=== PATIENT | male | born 1960 | race Caucasian/White ===

== ENCOUNTER 2020-12-25 09:59 | Outpatient (CLI) | payer OTHER, SELFPAY ==
[2020-12-25 10:48] LABS: Amphetamine Screen Urine Negative (Negative); Barbiturate Screen Urine Negative (Negative); Benzodiazepines Screen Urine Positive (Negative); Cannabinoid Screen Urine Positive (Negative); Cocaine Screen Urine Negative (Negative); Methadone Screen Urine Negative (Negative); Opiate Screen Urine Negative (Negative); Phencyclidine Screen Urine Negative (Negative)
[2020-12-25 11:09] LABS: Prostate Specific Antigen 1.6 ng/mL (< OR = 4.0)
== END 2020-12-25 10:00 | disposition home or self-care (01) ==
PROVIDERS: PCP Internal Medicine; Visit Provider Nurse Practitioner
DX: Z12.5 Encounter for screening for malignant neoplasm of prostate (principal); G47.00 Insomnia, unspecified
CPT/HCPCS: 36415; 80307; 84153; G0103

== ENCOUNTER 2021-03-29 09:25 | Inpatient (IN) | payer OTHER, SELFPAY ==
[2021-03-29] VITALS (16 sets, daily range): BP systolic 90–122; BP diastolic 59–83; PULSE 58–95; RESP 12–19; TEMP 35.9–36.6; O2SAT 97–100; BMI 17.4
--- NOTE | ~2021-03-29 | CT_ITS ---
EXAMINATION: CT cervical spine wo con DATE: 03/29/2021 11:09 INDICATION: Head injury, neck pain TECHNIQUE: Computed tomography (CT) of the cervical spine was performed without intravenous contrast. The dose-length product (DLP) was 158.45 mGy-cm. Automated exposure control and iterative reconstruc tion technique were employed. COMPARISON: None FINDINGS: There is no fracture, dislocation, or subluxation. The vertebral body heights are normal. T here is moderate to severe loss of intervertebral disc space height at C5-6. There is advanced facet osteoarthritis on the left at C2-3. There is moderate uncovertebral joint osteoarthritis at C5-6. IMPRESSION: 1. Moderate cervical spondylosis without acute findings. Reviewed, dictated and finalized at location A.
--- NOTE | ~2021-03-29 | XR_ITS ---
EXAMINATION: XR shoulder LT min 2V INDICATION: Left shoulder pain, initial encounter TECHNIQUE: Four views of the left shoulder are submitted. COMPARISON: None FINDINGS: There is an oblique fracture of the distal clavicle. The distal fracture fragment is crania lly displaced by approximately 5 mm. Alignment at the acromioclavicular joint is normal. There is mod erate glenohumeral joint osteoarthritis. Cranial migration of the humeral head with respect to the gl enoid may reflect chronic rotator cuff tear. Soft tissues are unremarkable. IMPRESSION: 1. Oblique fracture of the distal clavicle. Reviewed, dictated and finalized at location A.
--- NOTE | ~2021-03-29 | CT_ITS ---
EXAMINATION: CT chest abdomen pelvis w con DATE: 03/29/2021 11:11 INDICATION: Left-sided pain after fall TECHNIQUE: Transaxial computed tomographic images of the chest, abdomen, and pelvis were obtained aft er the administration of 100 cc of Omnipaque 350 intravenous contrast. The dose-length product (DLP) was 397.32 mGy-cm. Automated exposure control and iterative reconstruction technique were employed. COMPARISON: None FINDINGS: CHEST CT: There are changes of esophagectomy with gastric pull-through. There is a 4 mm nodule of the right upp er lobe on image 55. There is mild dependent atelectasis. There is a small right pleural effusion. No pathologically enlarged thoracic lymph nodes are identified. The heart size is normal. No pneumothor ax is identified. There is calcified coronary artery atherosclerosis. There is mild thoracic spondylo sis. There is an oblique fracture of the left distal clavicle with 5 mm of radial displacement of the distal fracture fragment. ABDOMEN/PELVIS CT: The liver, pancreas, and adrenal glands are normal. Punctate calcifications in an otherwise normal sp davide likely represent healed granulomatous disease. Stones are present in the nondistended gallbladde r. There is a 1.5 cm cyst of the left kidney. The right kidney is unremarkable. There is a 3.7 cm sac cular aneurysm of the infrarenal abdominal aorta. No pathologically enlarged abdominal or pelvic lymp h nodes are identified. There is no free intraperitoneal gas or evidence of bowel obstruction. There is mild to moderate lumbar spondylosis. IMPRESSION: 1. Left distal clavicle fracture. 2. Changes of esophagectomy with gastric pull-through. 3. Indeterminate 4 mm nodule of the right upper lobe. Comparison with prior imaging is recommended. Reviewed, dictated and finalized at location A. IMPRESSION: 1. Left distal clavicle fracture. 2. Changes of esophagectomy with gastric pull-through. 3. Indeterminate 4 mm nodule of the right upper lobe. Comparison with prior robin ging is recommended.
--- NOTE | ~2021-03-29 | CT_ITS ---
EXAMINATION: CT brain wo con INDICATION: Head injury COMPARISON: None TECHNIQUE: Standard unenhanced head CT. The dose-length product (DLP) was 605.33 mGy-cm. The mA was a djusted according to patient size. Iterative reconstruction technique was employed. FINDINGS: There is no acute intraparenchymal hemorrhage. No evidence of mass lesion. No evidence of a cute infarction. There is mild periventricular and subcortical hypodensity probably related to small vessel ischemic disease. There is mild prominence of the sulci and ventricles related to cerebral atr ophy. Intracranial calcified cerebral atherosclerosis is noted. There are no extra-axial collections. There is no mass effect or midline shift. The orbits and soft tissues are unremarkable. There is mil d mucosal thickening of the paranasal sinuses. IMPRESSION: 1. No acute intracranial abnormality. 2. Age related findings. Reviewed, dictated and finalized at location A.
[2021-03-29 10:12] LABS: Basophils Percent Auto 0.2 % (0.2-1.2); Eosinophils Percent Auto 0.2 % (0-4.4); Hematocrit 28.3 % (42.0-52.0); Hemoglobin 9.6 g/dL (14.0-18.0); Immature Granulocyte Absolute 0.03 K/mm3 (0.00-0.031); Immature Granulocyte Percent A 0.7 % (0-0.5); Lymphocytes Absolute Auto 0.58 K/mm3 (0.9-3.2); Lymphocytes Percent Auto 13.5 % (18.3-44.2); Mean Corpuscular HGB Conc 33.9 g/dl (32-36); Mean Corpuscular Hemoglobin 37.4 pg (26-34); Mean Corpuscular Volume 110.1 fl (80-100); Mean Platelet Volume 9.6 fl (7.4-10.4); Monocytes Absolute Auto 0.5 K/mm3 (0.1-0.6); Monocytes Percent Auto 12.3 % (2.6-8.5); Neutrophils Absolute Auto 3.2 K/mm3 (1.3-6.7); Neutrophils Percent Auto 73.1 % (45.5-73.1); Platelet Count Result 132 k/mm3 (150-375); Red Blood Count 2.57 M/mm3 (4.6-6.20); White Blood Count 4.3 K/mm3 (4.5-10.0)
[2021-03-29] MEDS: SODIUM CHLORIDE 0.9% IV 1,000 ML 999 ML IV CONT ×2 (10:16→11:01)
[2021-03-29 10:28] LABS: INR 0.9; Prothrombin Time 11.7 Seconds (11.1-14.7)
[2021-03-29 10:29] LABS: Partial Thromboplastin Time 25.1 SECONDS (22.3-36.8)
[2021-03-29 10:30] LABS: Alanine Aminotransferase 25 U/L (4-50); Alkaline Phosphatase 111 U/L (38-126); Anion Gap 5 mmol/L (8-16); Aspartate Amino Transferase 39 U/L (17-59); Bilirubin,Total 0.8 mg/dL (0.2-1.3); Blood Urea Nitrogen 44 mg/dL (9-20); Calcium 8.5 mg/dL (8.4-10.2); Carbon Dioxide 28 mmol/L (22-30); Chloride 105 mmol/L (98-107); Estimated CRCL calculation 57 ml/min; Estimated Glomerular Filt Rate > 60; Glucose 136 mg/dL (65-110); Potassium 4.4 mmol/L (3.4-5.0); Sodium 138 mmol/L (137-145)
--- NOTE | 2021-03-29 10:30 | ECG_ITS ---
Measurements Intervals [place] Rate: 71 P: 79 WV: 148 QRS: 78 QRSD: 122 T: 48 QT: 403 QTc: 439 Interpretive Statements SINUS RHYTHM RIGHT BUNDLE BRANCH BLOCK BASELINE ARTIFACT- II, III, AVL, AVF ABNORMAL ECG Electronically Signed On 03-29-2021 11:00:28 CDT by Marlon Zuniga D.O.
--- NOTE | 2021-03-29 10:33 | ED.GENADULT ---
HPI - General Adult General Chief complaint: Fall Stated complaint: fall Time Seen by Provider: 03/29/21 10:07 Source: patient Mode of arrival: EMS Limitations: no limitations History of Present Illness HPI narrative: Patient presents for evaluation after falling twice at home. He states last night he woke from sleep and attempted to get up out of bed to use the restroom. He felt dizzy and fell. He hit his head but is unsure whether he had a loss of consciousness. He is not on blood thinners. He was eventually able to get up and sit in a chair. This morning, while it was still dark out, he attempted to get up again but fell a second time secondary to dizziness. He does not believe he hit his head during that fall. He states he was on the ground for quite some time but was able to eventually scoot to his cell phone and called EMS who brought him here for further evaluation. He currently reports pain in the neck without descriptive quality or numerical rating. He states that he has some pain in the left ribs and left shoulder. He reports decreased range of motion of the left shoulder. He does not provide me a descriptive quality or numerical rating to that pain. He does admit to drinking 4 times per week, usually drinking 1 pint of vodka at a time. Last drink was last night. Nursing staff informed me that when patient arrived here via EMS he had been incontinent of stool. Stool is black in appearance and there was some blood and clots present. Of note, he has a history of esophageal cancer status post surgical removal of a portion of his esophagus and stomach. He states he is currently in remission. Related Data Home Medications Medication Instructions Recorded Confirmed ascorbic acid (vitamin C) 500 mg 500 mg PO DAILY 09/23/20 03/28/21 tablet cholecalciferol (vitamin D3) 25 1,000 unit PO DAILY cap 09/23/20 03/28/21 mcg (1,000 unit) capsule cyanocobalamin (vitamin B-12) 1,000 mcg PO DAILY 09/23/20 03/28/21 1,000 mcg tablet ibuprofen 200 mg capsule 200 mg PO Q6H PRN 09/23/20 03/28/21 multivitamin 1 tablet PO DAILY 09/23/20 03/28/21 rosuvastatin 20 mg tablet 20 mg PO DAILY 09/23/20 03/28/21 esomeprazole magnesium 20 mg 20 mg PO DAILY 04/14/21 08/13/21 capsule,delayed release gabapentin 100 mg capsule 100 mg PO TID 03/28/21 03/28/21 mirtazapine 15 mg tablet 15 mg PO DAILY 03/28/21 03/28/21 Allergies Allergy/AdvReac Type Severity Reaction Status Date / Time No Known Allergies Allergy Verified 03/29/21 09:38 Review of Systems Review of Systems: CONSTITUTIONAL: Denies fever, chills, or sweats. EYES: Denies visual changes, redness, or discharge. ENT: Denies rhinorrhea, congestion, sore throat, or otalgia. CARDIOVASCULAR: Denies chest pain, palpitations, or edema. RESPIRATORY: Denies cough or dyspnea. GASTROINTESTINAL: Reports recent fecal incontinence. Denies abdominal pain, nausea, vomiting, or diarrhea. GENITOURINARY: Denies dysuria or hematuria. SKIN: Reports wounds to upper extremities bilaterally MUSCULOSKELETAL: Reports left shoulder pain, neck pain, left-sided rib pain NEUROLOGIC: Reports dizziness. Denies headache, numbness, or weakness. PSYCHIATRIC: Denies anxiety or depression. [facility] Past Medical History Medical History Anxiety Asthma Cancer Esophageal Chemotherapy-induced neuropathy GERD (gastroesophageal reflux disease) High blood cholesterol Surgical History Surgical History History of esophageal surgery History of facial surgery History of thoracic surgery Hx of tonsillectomy Family History Family History Mother Cancer Hypertension Heart disease Father Heart attack Other Diabetes mellitus Heart disease Social History Social History Smok
[2021-03-29] MEDS: HYDROcodone/acetaminophen (*CRX) 5-325 MG TABLET 1 TAB PO ×2 (11:01→23:30)
[2021-03-29 12:01] LABS: Ethanol < 10 mg/dL (<10)
[2021-03-29 12:14] LABS: Add Urine Microscopic? YES; Appearance Urine Clear (Clear); Bilirubin Urine Negative (Negative); Blood Urine Negative (Negative); Color Urine Yellow (Yellow); Glucose Urine UA Negative (Negative); Ketones Urine Trace mg/dL (Negative); Leukocyte Esterase Ur Negative LEU/UL (Negative); Mucus Urine Rare /lpf; Nitrate Urine Negative (Negative); Protein Urine Negative (Negative); RBC Urine 0-2 /hpf (0-2); Urobilinogen Urine Negative mg/dL (<2.0); WBC Urine 0-3 /hpf
[2021-03-29 12:19] LABS: Creatine Kinase 70 U/L (55-170); Lipase 125 U/L (23-300)
[2021-03-29 12:27] LABS: Specific Grav Ur 1.039 (1.001-1.035)
[2021-03-29 12:31] LABS: Troponin I < 0.012 ng/mL (0.000-0.034)
[2021-03-29 14:44] LABS: Troponin I < 0.012 ng/mL (0.000-0.034)
--- NOTE | 2021-03-29 18:40 | ADMGEN ---
This patient, Thien Auguste, was admitted to 3 Med Surg Room 317-01. Patient/family oriented to hospital policies and general routines including ID bracelet, bed and alarms, visiting hours, pain management, procedures, bathroom and other care routines, personal items, smoking policy, room service/diet, and visiting hours. Information on how to activate the Rapid Response Team has been discussed. Patient/Family are encouraged to report perceived risks to care and to ask questions if they do not understand what they are told or what they should do.
[2021-03-29 20:55] LABS: Hematocrit 20.5 % (42.0-52.0)
--- NOTE | 2021-03-29 21:11 | PM.IMHP ---
H&P: HPI History of Present Illness Date/Time: 03/29/21 21:11 Chief Complaint: Passed out, tardy stools Narrative: 60-year-old male with past medical history of esophageal cancer with esophageal pull-through and vagotomy and alcoholism who presented to the ER via EMS after having syncopal event and fall after which he was unable to get up. The patient reported that last night he felt as if he was going to have a bowel movement tried to rash to the bathroom. He became lightheaded and had to sit back down in the chair at which time he was incontinent of stool. His stool was tarry at that time. He then again tried to get up in get cleaned up and subsequently fell and passed out. He was so weak he could not get up off the floor to call for help. It took him several hours to get to his phone. He reports pain in his shoulder since the fall. Once the patient arrived to the ER he had another bowel movement that was maroon and melenic in nature. He does admit to drinking 1/5 of vodka 3-4 days out of the week. He reports that he has had a long history of alcoholism. He had drank heavily for many years and then stopped for several years. However when his mother back in July he became depressed and started drinking again in August. He denies having any significant symptoms of heartburn. He does take PPI therapy daily. He reports that his quality of life is such that he he is frustrated. He states he is so weak he cannot get up and do what he wants to do. He has severe neuropathy that he thinks is from his chemotherapy regimen but could also be due to his chronic alcoholism. He reports that he has a chronic shuffling gait. Ever since he had his vagotomy he does not have this sensation did tell him that he is hungry. He will often sit home and does not realize it he has not eaten. He does drink protein shakes and low lactose supplements. He reports that prior to his esophageal cancer he weighed 260 lb. His weight had been holding steady at around 120 lb but several months he quit caring for his grand children in moved back to his own home full-time and since that time his weight has dropped down to around 107 lb. He states that his son travels frequently and he was helping raise his grand children. But caring for the grand children became too much for him and he had to return to his own home. He does have frequent difficulty with dumping syndrome. He reports that just prior to his melenic stool he did become nauseated and diaphoretic. He reports that he has been having difficulty with being dizzy with standing or moving about for the last several months. He denies any chest pain or palpitations. He had not had any recent syncopal episodes until today. He denies any difficulty with urination. In the ER he was found have a hemoglobin of 9. He does not know what his most recent hemoglobin was at [place]. He stated that he had labs performed in February and he was told that they were stable. He reports that his mother in 2019. His stepfather 3 weeks ago. He admits to being depressed but denies any suicidal ideation or plans to hurt himself. He is frustrated with his declining functional status. He would like acute rehab placement and alcohol treatment program on discharge. Review of Systems Review of Systems: 12 systems were reviewed with pertinent positives and negatives per HPI. Except as documented in the HPI, all other systems were reviewed and are negative. [facility] Past Medical History Medical History (Updated 03/29/21 @ 23:27 by Shantell Snow DO) Alcohol abuse Anxiety Asthma Chemotherapy-induced neuropathy Esophageal cancer GERD (gastroesophageal reflux disease) High blood cholesterol Surgical History Surgical History (Updated 03/29/21 @ 23:17 by Shantell Snow DO) History of esophagectomy History of facial surgery History of thoracic surgery History of vagotomy Hx of tonsillectomy Family History Family Hist
[2021-03-29] MEDS: PANTOPRAZOLE SODIUM IV 40 MG VIAL IV PUSH (21:24)
[2021-03-29] MEDS: SODIUM CHLORIDE 0.9% IV 1,000 ML 100 ML IV CONT (21:27)
[2021-03-29] MEDS: SODIUM CHLORIDE 0.9% IV 250 ML 30 ML IV CONT (23:05)
[2021-03-30] VITALS (11 sets, daily range): BP systolic 87–107; BP diastolic 54–76; PULSE 55–97; RESP 16–18; TEMP 36.1–37.1; O2SAT 98–100
[2021-03-30] MEDS: THIAMINE HCL 200 MG/2 ML VIAL 100 MG IV PUSH ×2 (02:55→09:42)
[2021-03-30 03:05] LABS: Hematocrit 24.6 % (42.0-52.0); Mean Corpuscular HGB Conc 32.5 g/dl (32-36); Mean Corpuscular Hemoglobin 33.8 pg (26-34); Mean Corpuscular Volume 103.8 fl (80-100); Mean Platelet Volume 9.7 fl (7.4-10.4); Platelet Count Result 82 k/mm3 (150-375); Red Blood Count 2.37 M/mm3 (4.6-6.20); Red Cell Distribution Width 19.5 % (11.5-14.5); White Blood Count 2.8 K/mm3 (4.5-10.0)
[2021-03-30 03:29] LABS: Albumin Level 2.1 g/dL (3.5-5.1); Aspartate Amino Transferase 25 U/L (17-59); Bilirubin,Total 0.7 mg/dL (0.2-1.3); Blood Urea Nitrogen 27 mg/dL (9-20); Carbon Dioxide 27 mmol/L (22-30); Estimated CRCL calculation 65 ml/min; Estimated Glomerular Filt Rate > 60
[2021-03-30 03:45] LABS: Alanine Aminotransferase 15 U/L (4-50); Alkaline Phosphatase 81 U/L (38-126); Anion Gap 2 mmol/L (8-16); Calcium 7.6 mg/dL (8.4-10.2); Chloride 103 mmol/L (98-107); Glucose 78 mg/dL (65-110); Potassium 3.3 mmol/L (3.4-5.0); Sodium 132 mmol/L (137-145)
[2021-03-30 04:31] LABS: Folic Acid 6.3 ng/mL (2.76->20)
[2021-03-30 09:22] LABS: Hematocrit 25.2 % (42.0-52.0); Hemoglobin 8.2 g/dL (14.0-18.0)
[2021-03-30] MEDS: SODIUM CHLORIDE 0.9% IV 1,000 ML 100 ML IV CONT ×2 (09:41→19:41)
[2021-03-30] MEDS: GABAPENTIN 100 MG CAPSULE PO ×3 (09:42→17:16)
[2021-03-30] MEDS: MIRTAZAPINE 15 MG TABLET PO (09:42)
[2021-03-30] MEDS: CHOLECALCIFEROL 1,000 UNITS TABLET 1000 UNITS PO (09:42)
[2021-03-30] MEDS: CYANOCOBALAMIN 1,000 MCG TABLET 1000 MCG PO (09:42)
[2021-03-30] MEDS: MULTIVITAMINS THERAPEUTIC TAB (*BKC) 1 TABLET PO (09:42)
[2021-03-30] MEDS: FOLIC ACID 1 MG/0.2 ML INJ IV PUSH (09:43)
[2021-03-30] MEDS: PANTOPRAZOLE SODIUM IV 40 MG VIAL IV PUSH ×2 (09:43→17:16)
--- NOTE | 2021-03-30 10:59 | WPDGICN ---
Assessment and Plan Assessment and plan (1) Acute blood loss anemia: Code(s): D62 - Acute posthemorrhagic anemia Status: Acute Assessment and Plan: will proceed with egd tomorrow, he is alcoholic and need to look for varices, PUD, etc. Also known history of esophageal cancer- assess if recurrence keep hb>7, iv protonix and supportive care (2) Acute GI bleeding: Code(s): K92.2 - Gastrointestinal hemorrhage, unspecified Status: Acute Assessment and Plan: protonix, egd tomorrow (3) Melena: Code(s): K92.1 - Melena Status: Acute (4) Alcohol abuse: Code(s): F10.10 - Alcohol abuse, uncomplicated Status: Acute Assessment and Plan: ciwa protocol thiamine, mvi alcohol cessation encourage (he would like to go to inpatient rehab) (5) Esophageal cancer: Code(s): C15.9 - Malignant neoplasm of esophagus, unspecified Status: Inactive (6) Closed fracture of left clavicle: Qualifiers: Clavicle location: unspecified part of clavicle Encounter type: initial encounter Fracture alignment: displaced Qualified Code(s): S42.002A - Fracture of unspecified part of left clavicle, initial encounter for closed fracture Code(s): S42.002A - Fracture of unspecified part of left clavicle, initial encounter for closed fracture Status: Acute Assessment and Plan: after he fell- by primary team (7) Syncopal episodes: Code(s): R55 - Syncope and collapse Status: Acute Assessment and Plan: probably due to acute gib and alcohol abuse (8) Chemotherapy-induced neuropathy: Code(s): G62.0 - Drug-induced polyneuropathy; T45.1X5A - Adverse effect of antineoplastic and immunosuppressive drugs, initial encounter Status: Acute GI Consult Note Consult date/time: 03/30/21 10:59 Reason for consult: melena, gib, syncope HPI: Thien Auguste is a 60 year old male with of esophageal cancer with esophageal pull-through and vagotomy 1 year ago s/p chemoradiation therapy, weight loss since surgery, GERD using nexium, alcohol abuse drinking 1 pint of vodka daily since he had his surgery (He had drank heavily for many years and then stopped for several years), he is under a lot of stress and family loss. He came to the ER via EMS after had syncopal episode. He says that [place]ar had first episode of rushing to bathroom and noted dark tarry stool, was lightheaded. Yesterday night after waking up again to use restroom was lightheaded and fell to floor and passed out briefly, had again dark tarry stool with incontinence. Finally was able to get to his phone after some time and brought here. He reports pain in his left shoulder since the fall. Denies blood thinners or nsaid's. Blood work hb 7, plate 80, bun 44, creat 0.8, liver enzymes normal, inr 0.9. CT scan reviewed, left distal clavicle fracture, changes of esophagectomy with gastric pull-through. Admitted to floor, iv protonix, blood transfusion. Review of Systems Constitutional: Constitutional: Reports weakness Eyes: Eyes: Reports no additional eye complaints ENT: Reports Normal hearing present Cardiovascular: Cardiovascular: Denies chest pain Respiratory: Respiratory: Denies dyspnea Gastrointestinal: Gastrointestinal: Reports melena Genitourinary: Genitourinary: Denies dysuria Musculoskeletal: Musculoskeletal: Reports arthralgias (left shoulder) Integumentary/Breasts: Comments: bruises in shoulder and arm Neurologic: Comments: syncopal episode Psychiatric: Psychiatric: Reports anxiety [facility] Past Medical History Medical History (Updated 03/30/21 @ 11:09 by Babak Adams MD) Acute blood loss anemia Alcohol abuse Anxiety Asthma Chemotherapy-induced neuropathy Esophageal cancer GERD (gastroesophageal reflux disease) High blood cholesterol Melena Syncopal episodes Surgical History Surgical History (Updated 03/29/21 @ 23:17 by Shantell Snow DO)
[2021-03-30 12:11] LABS: Hematocrit 25.1 % (42.0-52.0); Hemoglobin 8.1 g/dL (14.0-18.0)
[2021-03-30] MEDS: HYDROcodone/acetaminophen (*CRX) 5-325 MG TABLET 1 TAB PO ×2 (12:31→17:18)
--- NOTE | 2021-03-30 14:43 | PM.IMPN ---
Progress Note: A&P Assessment and Plan (1) Acute blood loss anemia: Code(s): D62 - Acute posthemorrhagic anemia Status: Acute Assessment and Plan: -likely upper GI bleed, hemoglobin down to 7.0, status post 1 unit packed red blood cells, improved to 8.0, appropriate increase in Hgb by 1 point -plan for EGD tomorrow with Dr. Chun -continue IV b.i.d. PPI for now -Zofran for nausea -continue IV fluids normal saline for now (2) Syncopal episodes: Code(s): R55 - Syncope and collapse Status: Acute Assessment and Plan: Likely secondary to anemia, will continue supportive care, IV fluids (3) Melena: Code(s): K92.1 - Melena Status: Acute Assessment and Plan: Likely upper GI bleed (4) Closed fracture of left clavicle: Qualifiers: Clavicle location: unspecified part of clavicle Encounter type: initial encounter Fracture alignment: displaced Qualified Code(s): S42.002A - Fracture of unspecified part of left clavicle, initial encounter for closed fracture Code(s): S42.002A - Fracture of unspecified part of left clavicle, initial encounter for closed fracture Status: Acute Assessment and Plan: Left upper extremity in sling, no surgical indication at this time -pain control with morphine and Coxsackie (5) Skin tear: Status: Acute Assessment and Plan: Will monitor, skin tears from fall (6) Underweight due to inadequate caloric intake: Code(s): R63.6 - Underweight Status: Acute Assessment and Plan: -Patient will need mealtime ensures and supplement, patient needs EGD for upper GI bleed 1st -mirtazapine for appetite stimulant (7) Chemotherapy-induced neuropathy: Code(s): G62.0 - Drug-induced polyneuropathy; T45.1X5A - Adverse effect of antineoplastic and immunosuppressive drugs, initial encounter Status: Acute Assessment and Plan: Continue home gabapentin (8) Alcohol abuse: Code(s): F10.10 - Alcohol abuse, uncomplicated Status: Acute Assessment and Plan: -continue thiamine and multivitamin and folic acid -p.r.n. Xanax for alcohol withdrawal, however [facility] has been zero -case hardener to provide resources for alcohol abuse Additional Plan Diet: Clear liquid diet NPO at midnight for EGD tomorrow DVT prophylaxis: SCDs, likely acute GI bleed so no blood thinners GI prophylaxis: Protonix Code status: Full code Disposition: Pending clinical course, EGD tomorrow Time Spent With Patient Time with patient: 25 - 35 minutes Subjective Date/time seen: 03/30/21 14:43 Patient examined. He feels okay today with no new complaints. He denies fever, chills, nausea, vomiting diarrhea, diarrhea. CIWAs have been zero as per nurse. He understands his alcoholism may be causing problems with GI symptoms and would like to have rehab therapy. support coordinator to provide alcohol cessation resources today. There is concern for GI bleed and evaluator transfer students will perform EGD tomorrow. Review of Systems Review of Systems: All systems reviewed & are unremarkable except as noted in HPI and below Exam Narrative: - GENERAL: Cachectic, frail male in no acute distress sitting comfortably in bed., - EYES: EOMI. Anicteric. - HENT: Moist mucous membranes. Bruise left-side of head - LUNGS: Clear to auscultation bilaterally, no wheezing, rhonchi, or rales. - CARDIOVASCULAR: Regular rate and rhythm. No murmur. - ABDOMEN: Soft, non-tender and non-distended. No palpable masses. - EXTREMITIES: No edema. Peripheral pulses 2+. Non-tender. Left upper extremity in sling, left clavicular fracture. - NEUROLOGIC: No focal neurological deficits. CN II-XII grossly intact. No shaking or signs of withdrawal, CIWA 0. - PSYCHIATRIC: Awake, Alert and oriented x 3. Appropriate mood and affect. - SKIN: Multiple bruises throughout his upper extremities, left shoulder, and has head - LYMPH: No cervical lymphadenopathy. Ob
[2021-03-30] MEDS: POTASSIUM CHLORIDE 20 MEQ PACKET (FOR LIQUID) 40 MEQ PO (17:15)
[2021-03-30 18:32] LABS: Hematocrit 22.3 % (42.0-52.0); Hemoglobin 7.4 g/dL (14.0-18.0)
[2021-03-31] VITALS (9 sets, daily range): BP systolic 95–112; BP diastolic 61–75; PULSE 50–556; RESP 16–24; TEMP 36–36.7; O2SAT 98–100; BMI 17.4
[2021-03-31] MEDS: SODIUM CHLORIDE 0.9% IV 1,000 ML 100 ML IV CONT (06:01)
--- NOTE | 2021-03-31 07:14 | PM.IMPN ---
Progress Note: A&P Assessment and Plan (1) Acute blood loss anemia: Code(s): D62 - Acute posthemorrhagic anemia Status: Acute Assessment and Plan: -likely upper GI bleed, hemoglobin down to 7.0, status post 1 unit packed red blood cells -plan for EGD today with Dr. Chun -continue IV b.i.d. PPI for now -Zofran for nausea -continue IV fluids normal saline for now. He will be started on diet again based on EGD findings. Continue to monitor H&H. Hemoglobin was 8.2 today which is up from 7.4 yesterday. PRBC transfusion is not indicated at this time. He has history of esophageal cancer with esophagectomy. He has received radiation and chemotherapy about a year ago. He has been getting his care through [facility] [place] [facility]. He was last seen by his oncologist about a month ago. (2) Syncopal episodes: Code(s): R55 - Syncope and collapse Status: Acute Assessment and Plan: Likely secondary to anemia, will continue supportive care, IV fluids (3) Melena: Code(s): K92.1 - Melena Status: Acute Assessment and Plan: Likely upper GI bleed (4) Closed fracture of left clavicle: Qualifiers: Clavicle location: unspecified part of clavicle Encounter type: initial encounter Fracture alignment: displaced Qualified Code(s): S42.002A - Fracture of unspecified part of left clavicle, initial encounter for closed fracture Code(s): S42.002A - Fracture of unspecified part of left clavicle, initial encounter for closed fracture Status: Acute Assessment and Plan: Left upper extremity in sling, no surgical indication at this time -pain control with morphine and [place]. Deescalate opiates if pain is adequately controlled. 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 Xanax for alcohol withdrawal, however GERMAN has been zero -manager of case management to provide resources for alcohol abuse Additional Plan Diet: Will resume clear liquid diet after endoscopy today based on findings. DVT prophylaxis: SCDs, likely acute GI bleed so no blood thinners GI prophylaxis: Protonix is b.i.d. dosing Magnesium was low which was repleted today. PT OT will be consulted for Code status: Full code Disposition: Pending clinical course, EGD today. Likely discharge in a.m. if remained stable. Subjective Date/time seen: 03/31/21 07:14 He denied have any significant symptoms. He denied have any chest pain or shortness of breath. He denied have any bowel movement in last 24 hour. He denied have any nausea vomiting or abdominal pain. He is feeling tired and being unwell. Review of Systems Review of Systems: All systems reviewed & are unremarkable except as noted in HPI and below Exam Narrative: - GENERAL: Cachectic, frail male in no acute distress sitting comfortably in bed., - LUNGS: Clear to auscultation bilaterally, no wheezing, rhonchi, or rales. - CARDIOVASCULAR: Regular rate and rhythm - ABDOMEN: Soft, non-tender and non-distended. - EXTREMITIES: No edema. - NEUROLOGIC: Alert oriented times - PSYCHIATRIC: Awake, Alert and oriented x 3. Appropriate mood and affect. - SKIN: Multiple bruises throughout his upper extremities, left shoulder, and has head Obj
[2021-03-31 07:43] LABS: Hematocrit 24.5 % (42.0-52.0); Hemoglobin 8.2 g/dL (14.0-18.0); Mean Corpuscular HGB Conc 33.5 g/dl (32-36); Mean Corpuscular Hemoglobin 35.3 pg (26-34); Mean Corpuscular Volume 105.6 fl (80-100); Mean Platelet Volume 10.1 fl (7.4-10.4); Platelet Count Result 95 k/mm3 (150-375); Red Blood Count 2.32 M/mm3 (4.6-6.20); Red Cell Distribution Width 20.5 % (11.5-14.5); White Blood Count 2.7 K/mm3 (4.5-10.0)
[2021-03-31 08:32] LABS: Anion Gap -1 mmol/L (8-16); Blood Urea Nitrogen 13 mg/dL (9-20); Calcium 7.7 mg/dL (8.4-10.2); Carbon Dioxide 23 mmol/L (22-30); Chloride 112 mmol/L (98-107); Estimated CRCL calculation 65 ml/min; Estimated Glomerular Filt Rate > 60; Glucose 92 mg/dL (65-110); Magnesium 1.4 mg/dL (1.6-2.3); Potassium 3.4 mmol/L (3.4-5.0); Sodium 134 mmol/L (137-145)
[2021-03-31] MEDS: THIAMINE HCL 200 MG/2 ML VIAL 100 MG IV PUSH (09:13)
[2021-03-31] MEDS: FOLIC ACID 1 MG/0.2 ML INJ IV PUSH (09:13)
[2021-03-31] MEDS: PANTOPRAZOLE SODIUM IV 40 MG VIAL IV PUSH ×2 (09:13→17:54)
--- NOTE | 2021-03-31 10:02 | PCOTNOTE ---
Patient not up to participating in OT this AM, experiencing low BP and declined all interventions, even bed level ADLs or exercises. Will attempt again later this morning if possible.
[2021-03-31] MEDS: MAGNESIUM SULF 4 GM/WATER100ML 4 GM/100 ML BAG IVPB (11:32)
--- NOTE | 2021-03-31 13:01 | WPDANESEPPF ---
Anes - Initial Pre Proc Eval Procedure: Operation Date: 03/31/21 14:00 Proposed Procedures p Esophagogastroduodenoscopy - Ramone Paiz MD Date/Time: 03/31/21 13:01 Surgeon: Shantell Snow DO Pre Op Diagnosis: GI Bleed Patient Data Age: 60 Gender: M Height: 1.68 m Weight: 49.1 kg Last Vital Signs Temp 36.4 C L 03/31/21 06:00 Pulse 556 H 03/31/21 06:00 Resp 16 03/31/21 06:00 BP 96/66 L 03/31/21 06:00 Pulse Ox 99 03/31/21 06:00 Allergies Allergy/AdvReac Type Severity Reaction Status Date / Time No Known Allergies Allergy Verified 03/29/21 18:58 Home Medications Medication Instructions Recorded Confirmed Type ascorbic acid (vitamin C) 500 mg 500 mg PO DAILY 09/23/20 03/29/21 History tablet cholecalciferol (vitamin D3) 25 1,000 unit PO DAILY cap 09/23/20 03/29/21 History mcg (1,000 unit) capsule cyanocobalamin (vitamin B-12) 1,000 mcg PO DAILY 09/23/20 03/29/21 History 1,000 mcg tablet multivitamin 1 tablet PO DAILY 09/23/20 03/29/21 History albuterol sulfate 90 mcg/actuation 1 puff INHALATION Q4-6H PRN #8.5 g 09/27/20 03/29/21 Rx aerosol inhaler esomeprazole magnesium 20 mg 20 mg PO DAILY 11/27/20 03/29/21 History capsule,delayed release alprazolam 1 mg tablet See Rx Instructions PO DAILY #30 03/05/21 03/29/21 Rx tablet gabapentin 100 mg capsule 100 mg PO TID 03/28/21 03/29/21 History mirtazapine 15 mg tablet 15 mg PO DAILY 03/28/21 03/29/21 History Laboratory Tests 03/30/21 03/31/21 03/31/21 18:22 07:29 07:29 WBC 2.7 K/mm3 L K/mm3 (4.5-10.0) RBC 2.32 M/mm3 L M/mm3 (4.6-6.20) Hgb 7.4 g/dL L g/dL 8.2 g/dL L g/dL (14.0-18.0) (14.0-18.0) Hct 22.3 % L % 24.5 % L % (42.0-52.0) (42.0-52.0) MCV 105.6 fl H fl (80-100) MCH 35.3 pg H pg (26-34) MCHC 33.5 g/dl g/dl (32-36) RDW 20.5 % H % (11.5-14.5) Plt Count 95 k/mm3 L k/mm3 (150-375) MPV 10.1 fl fl (7.4-10.4) Sodium 134 mmol/L L mmol/L (137-145) Potassium 3.4 mmol/L mmol/L (3.4-5.0) Chloride 112 mmol/L H mmol/L (98-107) Carbon Dioxide 23 mmol/L mmol/L (22-30) Anion Gap -1 mmol/L L mmol/L (8-16) BUN 13 mg/dL D mg/dL (9-20) Creatinine 0.70 mg/dL mg/dL (0.7-1.3) Estim Creat Clear Calc 65 ml/min ml/min Estimated GFR > 60 (59 - ) Glucose 92 mg/dL mg/dL (65-110) Calcium 7.7 mg/dL L mg/dL (8.4-10.2) Magnesium 1.4 mg/dL L mg/dL (1.6-2.3) Patient hx anesthesia problems: none Family hx anesthesia problems: none [facility] Past Medical History Medical History Acute blood loss anemia Alcohol abuse Anxiety Asthma Chemotherapy-induced neuropathy Esophageal cancer GERD (gastroesophageal reflux disease) High blood cholesterol Melena Syncopal episodes Surgical History Surgical History History of esophagectomy History of facial surgery History of thoracic surgery History of vagotomy Hx of tonsillectomy Family History Family History Mother , at age 90 Hypertension Heart disease Breast cancer Father , at age 42 Heart attack Other Diabetes mellitus Heart disease Social History Social History Social History: He lives in his own home. 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 He has an intermittent history of alcohol abuse drinking up to 1 pt of alcohol 3 to 4 times a week. He used to smoke 2 packs of cigarettes per day but quit smoking in 2019 prior to his esophageal surgery. He started smoking as a teenager. Charlie
[2021-03-31] MEDS: LACTATED RINGERS 1,000 ML 150 ML IV CONT (13:09)
--- NOTE | 2021-03-31 13:45 | PCPTNOTE ---
Pt getting EGD. PT attempted eval. Will try again tomorrow.
[2021-03-31] MEDS: GABAPENTIN 100 MG CAPSULE PO ×2 (14:47→17:54)
--- NOTE | 2021-03-31 14:51 | PCOTNOTE ---
Patient had returned from his endoscopy this afternoon. Patient verbalized, he isn't feeling the best and is waiting on the nurse to come in to bandage a skin tear. Patient declined participating at this time.
[2021-03-31] MEDS: HYDROcodone/acetaminophen (*CRX) 5-325 MG TABLET 1 TAB PO ×2 (15:19→21:47)
[2021-03-31] MEDS: SODIUM CHLORIDE 0.9% IV 1,000 ML 75 ML IV CONT (21:31)
[2021-03-31] MEDS: ALPRAZolam (*CRX) 0.5 MG TABLET 1 MG PO (21:48)
[2021-04-01 06:00] VITALS: BP 91/66; PULSE 52; RESP 18; TEMP 36.4; O2SAT 95
[2021-04-01 07:12] LABS: Basophils Percent Auto 0.9 % (0.2-1.2); Eosinophils Absolute Auto 0.1 K/mm3 (0-0.3); Eosinophils Percent Auto 2.6 % (0-4.4); Hematocrit 28.6 % (42.0-52.0); Hemoglobin 9.1 g/dL (14.0-18.0); Immature Granulocyte Absolute 0.01 K/mm3 (0.00-0.031); Immature Granulocyte Percent A 0.4 % (0-0.5); Lymphocytes Absolute Auto 0.59 K/mm3 (0.9-3.2); Lymphocytes Percent Auto 25.7 % (18.3-44.2); Mean Corpuscular HGB Conc 31.8 g/dl (32-36); Mean Corpuscular Hemoglobin 34.5 pg (26-34); Mean Corpuscular Volume 108.3 fl (80-100); Mean Platelet Volume 10.3 fl (7.4-10.4); Monocytes Absolute Auto 0.2 K/mm3 (0.1-0.6); Monocytes Percent Auto 9.1 % (2.6-8.5); Neutrophils Absolute Auto 1.4 K/mm3 (1.3-6.7); Neutrophils Percent Auto 61.3 % (45.5-73.1); Platelet Count Result 105 k/mm3 (150-375); Red Blood Count 2.64 M/mm3 (4.6-6.20); Red Cell Distribution Width 19.9 % (11.5-14.5); White Blood Count 2.3 K/mm3 (4.5-10.0)
--- NOTE | 2021-04-01 07:56 | WPDGIPROGNO ---
Progress Note: A&P Assessment and Plan (1) Melena: Code(s): K92.1 - Melena Status: Acute Assessment and Plan: this morning's blood counts are not back yet. He had 1 small black stool last evening (2) Acute blood loss anemia: Code(s): D62 - Acute posthemorrhagic anemia Status: Acute Assessment and Plan: this was due to bleeding and his esophagus- gastric anastomosis, which was cauterized with argon plasma coagulater. There was a small pyloric channel ulcer. H pylori was negative. I think we can advance his diet and he could probably be discharged if his counts have not dropped significantly (3) Alcohol abuse: Code(s): F10.10 - Alcohol abuse, uncomplicated Status: Acute Assessment and Plan: I told that it is very important that he discontinue alcohol. I think is esophagitis was as much from alcohol abuse as it is from acid reflux. (4) Erosive esophagitis: Code(s): K22.10 - Ulcer of esophagus without bleeding Status: Acute Assessment and Plan: He has no symptoms of heartburn and consequently he is not an individual who would not feel pain from acid reflux. He was taking an [id number] Nexium. We will need to keep him on PPI b.i.d. for a couple weeks then once daily. He should have repeat EGD in 6-8 weeks Subjective Date/time seen: 04/01/21 07:56 He had a great night. He had 1 very small dark stool last night. No problem with clear liquids. Review of Systems Review of Systems: All systems reviewed & are unremarkable except as noted in HPI and below Exam Const: General: cooperative and alert Orientation/consciousness: patient oriented x3 Resp: Auscultation: clear to auscultation bilaterally GI: Inspection: normal to inspection GI Palp: Yes Soft to palpation and No Tenderness to palpation present (GI) Auscultation: normal bowel sounds Skin: General skin exam: normal color and no jaundice Neuro: Motor exam (neuro): No [place] during motor activity present Objective Data Vital Signs Vital Signs: Vital Signs - 24 hr 03/31/21 12:50 03/31/21 13:44 03/31/21 13:54 Temperature 36.7 C Pulse Rate 56 L 69 53 L Respiratory Rate 16 24 H 18 Blood Pressure 109/70 98/69 L 108/71 Pulse Oximetry 98 99 98 03/31/21 14:00 03/31/21 14:04 03/31/21 14:05 Temperature 36.0 C L Pulse Rate 50 L 52 L 69 Respiratory Rate 18 20 Blood Pressure 109/69 106/61 112/75 Pulse Oximetry 100 99 03/31/21 14:10 03/31/21 22:00 04/01/21 06:00 Temperature 36.4 C L 36.4 C L Pulse Rate 77 59 L 52 L Respiratory Rate 18 18 Blood Pressure 106/72 95/66 L 91/66 L Pulse Oximetry 98 95 Intake/Output Intake/Output: Intake & Output 03/29/21 03/30/21 03/31/21 04/01/21 23:59 23:59 23:59 23:59 Intake Total 1999 4390 2670 250 Output Total 1500 1600 1100 Balance 1999 2890 1070 -850 Meds/Results Medications: Active Medications Generic Name Dose Route Start Last Admin Trade Name Freq PRN Reason Stop Dose Admin Hydrocodone Bitart/Acetaminophen 1 tab 03/29/21 23:03 03/31/21 21:47 Hydrocodone/Acetaminophen (*Crx) 5-325 Mg Tablet PO 1 tab Q4H PRN Administration Pain Rated 4-6 Alprazolam 1 mg 03/29/21 23:04 03/31/21 21:48 Alprazolam (*Crx) 0.5 Mg Tablet PO 1 mg TID PRN Administration Anxiety or alcohol withdrawal Cyanocobalamin 1,000 mcg 03/30/21 09:00 03/31/21 14:45 Cyanocobalamin 1,000 Mcg Tablet PO Not Given DAILY AUDELIA Folic Acid 1 mg 04/01/21 09:00 Folic Acid 1 Mg Tablet PO DAILY AUDELIA Gabapentin 100 mg 03/30/21 09:00 03/31/21 17:54 Gabapentin 100 Mg Capsule PO 100 mg TID AUDELIA Administration Sodium Chloride 1,000 mls @ 75 mls/hr 03/29/21 16:05 03/31/21 21:31 Normal Saline Iv IV CONT 75 mls/hr .[id number] AUDELIA Administration Mirtazapine 15 mg 03/30/21 09:00 03/31/21 14:45 Mirtazapine 15 Mg Tablet PO Not Given DAILY AUDELIA Morphine Sulfate 2 mg 03/16
[2021-04-01 08:02] LABS: Anion Gap 1 mmol/L (8-16); Blood Urea Nitrogen 7 mg/dL (9-20); Calcium 7.9 mg/dL (8.4-10.2); Carbon Dioxide 24 mmol/L (22-30); Chloride 113 mmol/L (98-107); Estimated CRCL calculation 75 ml/min; Estimated Glomerular Filt Rate > 60; Glucose 79 mg/dL (65-110); Magnesium 2.3 mg/dL (1.6-2.3); Potassium 3.4 mmol/L (3.4-5.0); Sodium 138 mmol/L (137-145)
--- NOTE | 2021-04-01 08:17 | WPDANESPN ---
Anes - Prog Note Post-Op Date/Time: 04/01/21 08:17 Cardiovascular status: normal Respiratory status: normal Airway patency: baseline Mental status: baseline Post-Op hydration status: normal Vital Signs: Last Vital Signs Temp 36.4 C L 04/01/21 06:00 Pulse 52 L 04/01/21 06:00 Resp 18 04/01/21 06:00 BP 91/66 L 04/01/21 06:00 Pulse Ox 95 04/01/21 06:00 Pain Score (VAS): 0 I/O: Intake & Output 03/31/21 04/01/21 04/01/21 23:59 07:59 15:59 Intake Total 1670 250 Output Total 1200 1100 Balance 470 -850 Laboratory Tests 04/01/21 06:17 04/01/21 06:17 03/31/21 04/01/21 04/01/21 07:29 06:17 06:17 WBC 2.3 L RBC 2.64 L Hgb 9.1 L Hct 28.6 L MCV 108.3 H MCH 34.5 H MCHC 31.8 L RDW 19.9 H Plt Count 105 L MPV 10.3 Immature Gran % (Auto) 0.4 Neut % (Auto) 61.3 Lymph % (Auto) 25.7 [place] % (Auto) 9.1 H Eos % (Auto) 2.6 Baso % (Auto) 0.9 Lymph # (Auto) 0.59 L [place] # (Auto) 0.2 Eos # (Auto) 0.1 Baso # (Auto) 0.0 Abs Immat Gran (auto) 0.01 Absolute Neuts (auto) 1.4 Absolute Nucleated RBC 0.0 Nucleated RBC % 0.0 Sodium 134 L 138 Potassium 3.4 3.4 Chloride 112 H 113 H Carbon Dioxide 23 24 Anion Gap -1 L 1 L BUN 13 D 7 L D Creatinine 0.70 0.60 L Estim Creat Clear Calc 65 75 Estimated GFR > 60 > 60 Glucose 92 79 Calcium 7.7 L 7.9 L Magnesium 1.4 L 2.3 Post-procedural complaints: none Patient Feedback: Patient satisfied with anesthetic care.
[2021-04-01] MEDS: GABAPENTIN 100 MG CAPSULE PO ×3 (09:01→17:35)
[2021-04-01] MEDS: MIRTAZAPINE 15 MG TABLET PO (09:02)
[2021-04-01] MEDS: MULTIVITAMINS THERAPEUTIC TAB (*BKC) 1 TABLET PO (09:02)
[2021-04-01] MEDS: THIAMINE HCL 100 MG TABLET PO (09:02)
[2021-04-01] MEDS: FOLIC ACID 1 MG TABLET PO (09:02)
[2021-04-01] MEDS: PANTOPRAZOLE SODIUM IV 40 MG VIAL IV PUSH (09:02)
[2021-04-01] MEDS: CYANOCOBALAMIN 1,000 MCG TABLET 1000 MCG PO (09:02)
[2021-04-01] MEDS: CHOLECALCIFEROL 1,000 UNITS TABLET 1000 UNITS PO (09:02)
[2021-04-01] MEDS: HYDROcodone/acetaminophen (*CRX) 5-325 MG TABLET 1 TAB PO ×2 (09:09→17:43)
[2021-04-01] MEDS: SUCRALFATE 1 GM TABLET PO ×3 (11:43→21:10)
--- NOTE | 2021-04-01 13:03 | PM.IMPN ---
Progress Note: A&P Assessment and Plan (1) Acute blood loss anemia: Code(s): D62 - Acute posthemorrhagic anemia Status: Acute Assessment and Plan: -upper GI bleed in nature with bleeding ulcer at gastroesophageal junction. Hemoglobin down to 7.0, status post 1 unit packed red blood cells -GI consult with Dr. Chun with a recommendations appreciated. Endoscopy performed on 03/31 showed esophagitis. A bleeding unilateral ulcer at gastro esophageal junction was seen with mild oozing a blood which was cauterized. He had a duodenal ulcer as well which was nonbleeding. -will switch pantoprazole from IV to p.o.. He will be on b.i.d. dosing for 2 weeks which will be transitioned to oral once a day. I will add sucralfate for healing of ulcer for the next 2 weeks. -Zofran for nausea -he seems to be tolerating liquid diet. Diet has been advanced to regular diet now. Continue to monitor H&H. H&H remained stabl. He is having melanotic stool but no hematochezia. He has history of esophageal cancer with esophagectomy. He has received radiation and chemotherapy about a year ago. He has been getting his care through [facility]. He was last seen by his oncologist about a month ago. (2) Syncopal episodes: Code(s): R55 - Syncope and collapse Status: Acute Assessment and Plan: Likely secondary to anemia, will continue supportive care Orthostatic vitals will be checked today. He was not orthostatic yesterday but has been having borderline hypertension today. (3) Melena: Code(s): K92.1 - Melena Status: Acute Assessment and Plan: Likely upper GI bleed (4) Closed fracture of left clavicle: Qualifiers: Clavicle location: unspecified part of clavicle Encounter type: initial encounter Fracture alignment: displaced Qualified Code(s): S42.002A - Fracture of unspecified part of left clavicle, initial encounter for closed fracture Code(s): S42.002A - Fracture of unspecified part of left clavicle, initial encounter for closed fracture Status: Acute Assessment and Plan: Left upper extremity in sling, no surgical indication at this time -pain control with morphine and [place]. Deescalate opiates if pain is adequately controlled. (5) Skin tear: Status: Acute Assessment and Plan: Will monitor, skin tears from fall (6) Underweight due to inadequate caloric intake: Code(s): R63.6 - Underweight Status: Acute Assessment and Plan: -Patient will need mealtime ensures and supplement. He has lost significant amount of weight. 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 Xanax for alcohol withdrawal, however CIWA has been zero. He is not requiring any Ativan dosing. -spring encaser to provide resources for alcohol abuse Additional Plan Diet: Tolerating regular diet.. DVT prophylaxis: SCDs, likely acute GI bleed so no blood thinners GI prophylaxis: Protonix is b.i.d. dosing PT OT following Code status: Full code Disposition: He can be discharge in a.m. if his blood pressure is in acceptable range and not having orthostatic hypotension. Subjective Date/time seen: 04/01/21 13:03 He had endoscopy yesterday and was found to have gastritis as. There was an ulcer at gastroesophageal junction with mild oozing of blood which was cauterized. He also had duodenal ulcer which was nonbleeding. He tolerates the liquid diet after endoscopy with no significant symptoms. His diet has been advanced today.
--- NOTE | 2021-04-01 13:15 | PCOTNOTE ---
Attempted to see patient this pm, however patient declined stating he already completed ADLs this am and was perfectly comfortable staying in bed right now.
[2021-04-01 14:00] VITALS: BP 105/69; PULSE 57; RESP 16; TEMP 36.3; O2SAT 100
[2021-04-01 15:52] VITALS: BP 105/69; PULSE 57
[2021-04-01 15:53] VITALS: BP 86/66; BP 92/59; PULSE 66; PULSE 80
[2021-04-01] MEDS: SODIUM CHLORIDE 0.9% IV 1,000 ML 75 ML IV CONT (17:34)
[2021-04-01] MEDS: ALPRAZolam (*CRX) 0.5 MG TABLET 1 MG PO (21:10)
[2021-04-01] MEDS: PANTOPRAZOLE 40 MG TABLET PO (21:10)
[2021-04-01 22:00] VITALS: BP 134/75; PULSE 103; RESP 18; TEMP 37.5; O2SAT 96
[2021-04-02 05:30] VITALS: BP 159/81; PULSE 106; RESP 18; TEMP 36.4; O2SAT 97
[2021-04-02] MEDS: SUCRALFATE 1 GM TABLET PO ×4 (05:45→22:13)
[2021-04-02] MEDS: HYDROcodone/acetaminophen (*CRX) 5-325 MG TABLET 1 TAB PO ×3 (05:45→22:17)
[2021-04-02] MEDS: SODIUM CHLORIDE 0.9% IV 1,000 ML 75 ML IV CONT (05:45)
[2021-04-02 06:33] LABS: Hemoglobin 8.3 g/dL (14.0-18.0); Mean Corpuscular HGB Conc 31.9 g/dl (32-36); Mean Corpuscular Hemoglobin 33.9 pg (26-34); Mean Corpuscular Volume 106.1 fl (80-100); Mean Platelet Volume 9.8 fl (7.4-10.4); Platelet Count Result 120 k/mm3 (150-375); Red Blood Count 2.45 M/mm3 (4.6-6.20); Red Cell Distribution Width 19.7 % (11.5-14.5); White Blood Count 2.2 K/mm3 (4.5-10.0)
[2021-04-02 07:54] LABS: Band Neutrophils Percent 1 % (0-6); Eosinophils Absolute Manual 0.02 K/mm3 (0.02-0.5); Eosinophils Percent Manual 1 % (0-4); Hypochromasia 2+ (NORMAL); Lymphocytes Absolute Manual 0.55 K/mm3 (1.1-4.5); Metamyelocytes Percent 2 %; Monocytes Absolute Manual 0.02 K/mm3 (0.1-0.90); Monocytes Percent Manual 1 % (3-9); Neutrophils Absolute Manual 1.56 K/mm3 (1.3-6.7); Neutrophils Percent Manual 70 % (46-73); Platelet Estimate Adequate (Adequate); Total Cells Counted 100
[2021-04-02 07:55] VITALS: BP 87/61; PULSE 88; RESP 14; TEMP 36.1; O2SAT 98
[2021-04-02 08:00] VITALS: BP 89/61; PULSE 66; RESP 14; TEMP 36.2; O2SAT 100
[2021-04-02 08:05] VITALS: BP 88/58; PULSE 65; RESP 16; TEMP 36.1; O2SAT 100
[2021-04-02] MEDS: FOLIC ACID 1 MG TABLET PO (08:40)
[2021-04-02] MEDS: MULTIVITAMINS THERAPEUTIC TAB (*BKC) 1 TABLET PO (08:40)
[2021-04-02] MEDS: PANTOPRAZOLE 40 MG TABLET PO ×2 (08:40→22:13)
[2021-04-02] MEDS: CYANOCOBALAMIN 1,000 MCG TABLET 1000 MCG PO (08:40)
[2021-04-02] MEDS: GABAPENTIN 100 MG CAPSULE PO ×3 (08:40→16:46)
[2021-04-02] MEDS: THIAMINE HCL 100 MG TABLET PO (08:40)
[2021-04-02] MEDS: CHOLECALCIFEROL 1,000 UNITS TABLET 1000 UNITS PO (08:40)
[2021-04-02] MEDS: MIRTAZAPINE 15 MG TABLET PO (08:40)
--- NOTE | 2021-04-02 10:50 | PCNFU ---
Nutrition Follow-Up Complete: Altered GI function as related to GI bleed as evidenced by NPO Goal: Meet estimated nutritional needs Patient is progressing towards goal. We will continue current goal. Pt current nutrition is Regular with Ensure Compact BID. Last recorded weight is 49.1 kg, no new weight to report. Bowel Motility:+BM 04/01 Labs Reviewed:Cr 0.6,BUN 7,Hct 26.0, Hgb 8.3 Meds Noted:Vit D, Thiamine,Vit B12,Folic Acid, Remeron,[place],Protonix,NS Additional Notes: Patient seen today for nutrition follow up. He was eating breakfast today. Oral intake has been about 75-100% of meals. He has been drinking is Ensure Compact drinks as well. Agree with diet orders. Will monitor every 5 days.
--- NOTE | 2021-04-02 10:55 | PM.IMPN ---
Progress Note: A&P Assessment and Plan (1) Erosive esophagitis: Code(s): K22.10 - Ulcer of esophagus without bleeding Status: Acute (2) Melena: Code(s): K92.1 - Melena Status: Acute (3) Acute GI bleeding: Code(s): K92.2 - Gastrointestinal hemorrhage, unspecified Status: Acute Additional Plan 1. Acute blood loss anemia due to GI bleed -upper GI bleed in nature with bleeding ulcer at gastroesophageal junction. Hemoglobin down to 7.0, status post 1 unit packed red blood cells -GI consult with Dr. Chun with a recommendations appreciated. Endoscopy performed on 03/31 showed esophagitis. A bleeding unilateral ulcer at gastro esophageal junction was seen with mild oozing a blood which was cauterized. He had a duodenal ulcer as well which was nonbleeding. - Pantoprazole transitioned from IV to p.o. 04/01. He will be on b.i.d. dosing for 2 weeks which will be transitioned to oral once a day. - Sucralfate for healing of ulcer for the next 2 weeks. - Zofran for nausea - He seems to be tolerating liquid diet. Diet has been advanced to regular diet now. - Continue to monitor H&H. Noted drop from 9 --> 8. Has not had a BM past 2 days. - He has history of esophageal cancer with esophagectomy. He has received radiation and chemotherapy about a year ago. He has been getting his care through [facility] center at [facility]. He was last seen by his oncologist about a month ago. 2. Syncopal episodes: - Likely secondary to anemia, positive orthostatics, given IV hydration, will continue supportive care, will stop IVF today and see how he does without it in anticipation for possible discharge tomorrow 3. Closed fracture of left clavicle: - Left upper extremity in sling, no surgical indication at this time -pain control with morphine and [place]. Deescalate opiates if pain is adequately controlled. 4. Underweight due to inadequate caloric intake: -Patient will need mealtime ensures and supplement. He has lost significant amount of weight. -mirtazapine for appetite stimulant 5. Chemotherapy-induced neuropathy: - Continue home gabapentin 6. Alcohol abuse: -continue thiamine and multivitamin and folic acid -p.r.n. Xanax for alcohol withdrawal, however CIWA has been zero. He is not requiring any Ativan dosing. -lead case manager to provide resources for alcohol abuse DVT prophylaxis: SCDs, likely acute GI bleed so no blood thinners GI prophylaxis: Protonix is b.i.d. dosing PT OT following Code status: Full code Disposition: Given drop in hemoglobin and soft blood pressure, we will monitor for another day, if his hemoglobin is stable tomorrow plan for discharge Subjective Date/time seen: 04/02/21 10:55 No major issues overnight. Hemodynamically stable. Afebrile. No nausea vomiting. No chest pain. When asked about melena, reports no bowel movement the past 3 days. Exam Narrative: Gen: Alert, NAD Abd: Soft, NT, ND Heart: RRR Lungs: CTAB Ext: No lower extremity edema Objective Data Vital Signs Vital Signs: Vital Signs - 24 hr 04/01/21 14:00 04/01/21 15:52 04/01/21 15:53 Temperature 97.4 F L Pulse Rate 57 L 57 L 80 Respiratory Rate 16 Blood Pressure 105/69 105/69 86/66 L Pulse Oximetry 100 04/01/21 22:00 04/02/21 05:30 Temperature 99.5 F 97.6 F Pulse Rate 103 H 106 H Respiratory Rate 18 18 Blood Pressure 134/75 159/81 H Pulse Oximetry 96 97 Intake/Output Intake/Output: Intake & Output 03/30/21 03/31/21 04/01/21 04/02/21 23:59 23:59 23:59 23:59 Intake Total 4390 2670 3450 1200 Output Total 1500 1600 1900 400 Balance 2890 1070 1550 800 Meds/Results Medications: Active Medications Generic Name Dose Route Start Last Admin Trade Name Freq PRN Reason Stop Dose Admin Hydrocodone Bitart/Acetaminophen 1 tab 03/29/21 23:03 04/02/21 10:27 Hydrocodone/Acetaminophen (*Crx) 5-325 Mg Tablet PO 1 tab Q4H PRN Administration Pain Rated 4-6 Alprazola
[2021-04-02 14:00] VITALS: BP 87/61; PULSE 88; RESP 14; TEMP 36.1; O2SAT 98
[2021-04-02 22:00] VITALS: BP 96/56; PULSE 71; RESP 18; TEMP 36.8; O2SAT 100
[2021-04-02] MEDS: ALPRAZolam (*CRX) 0.5 MG TABLET 1 MG PO (22:17)
[2021-04-03 06:00] VITALS: BP 99/55; PULSE 72; RESP 18; TEMP 36.3; O2SAT 100
[2021-04-03] MEDS: SUCRALFATE 1 GM TABLET PO ×4 (06:14→21:34)
[2021-04-03] MEDS: HYDROcodone/acetaminophen (*CRX) 5-325 MG TABLET 1 TAB PO (06:17)
[2021-04-03 06:26] LABS: Hematocrit 24.9 % (42.0-52.0); Hemoglobin 7.9 g/dL (14.0-18.0)
--- NOTE | 2021-04-03 06:39 | WPDGIPROGNO ---
Progress Note: A&P Assessment and Plan (1) Erosive esophagitis: Code(s): K22.10 - Ulcer of esophagus without bleeding Status: Acute Assessment and Plan: I reminded him that he needs to stay on his medication. His PPI and for at least 3 or 4 weeks should be on sucralfate. I will schedule him for repeat EGD in 8 weeks (2) Anemia: Qualifiers: Anemia type: other cause Other causes of anemia: acute posthemorrhagic Qualified Code(s): D62 - Acute posthemorrhagic anemia Code(s): D64.9 - Anemia, unspecified Status: Acute Assessment and Plan: although he lost blood from is esophageal- gastric anastomosis, I suspect he has bone marrow suppression due to alcohol given the fact that he has also neutropenia Subjective Date/time seen: 04/03/21 06:39 he has no complaints. Has seen no sign of bleeding. He is hoping to go home today. The issue has been that his blood pressure has been on the low side Review of Systems Review of Systems: All systems reviewed & are unremarkable except as noted in HPI and below Exam Const: General: cooperative, no acute distress and alert Orientation/consciousness: patient oriented x3 HENMT: General nose exam: Normal nares present Eyes: Sclera: sclerae normal Neck: Neck: supple Resp: Auscultation: clear to auscultation bilaterally Cardio: Rate: regular rate GI: Inspection: normal to inspection Auscultation: normal bowel sounds Skin: General skin exam: normal color and no jaundice Other: bruises in left arm Neuro: General: patient oriented x3 Cranial nerves: Yes Normal hearing present Speech: normal speech Motor exam (neuro): Normal motor muscle tone present throughout and No Asterixis during motor activity present Extrem: General: no edema Left upper extremity: shoulder/upper arm (wearing sling) Psych: Affect: Anxious affect present Objective Data Vital Signs Vital Signs: Vital Signs - 24 hr 04/02/21 07:55 04/02/21 08:00 04/02/21 08:05 Temperature 36.1 C L 36.2 C L 36.1 C L Pulse Rate 88 66 65 Respiratory Rate 14 14 16 Blood Pressure 87/61 L 89/61 L 88/58 L Pulse Oximetry 98 100 100 04/02/21 14:00 04/02/21 22:00 04/03/21 06:00 Temperature 36.1 C L 36.8 C 36.3 C L Pulse Rate 88 71 72 Respiratory Rate 14 18 18 Blood Pressure 87/61 L 96/56 L 99/55 L Pulse Oximetry 98 100 100 Intake/Output Intake/Output: Intake & Output 03/31/21 04/01/21 04/02/21 04/03/21 23:59 23:59 23:59 23:59 Intake Total 2670 3450 3590 250 Output Total 1600 1900 1200 600 Balance 1070 1550 2390 -350 Meds/Results Medications: Active Medications Generic Name Dose Route Start Last Admin Trade Name Freq PRN Reason Stop Dose Admin Hydrocodone Bitart/Acetaminophen 1 tab 03/29/21 23:03 04/03/21 06:17 Hydrocodone/Acetaminophen (*Crx) 5-325 Mg Tablet PO 1 tab Q4H PRN Administration Pain Rated 4-6 Alprazolam 1 mg 03/29/21 23:04 04/02/21 22:17 Alprazolam (*Crx) 0.5 Mg Tablet PO 1 mg TID PRN Administration Anxiety or alcohol withdrawal Cyanocobalamin 1,000 mcg 03/30/21 09:00 04/02/21 08:40 Cyanocobalamin 1,000 Mcg Tablet PO 1,000 mcg DAILY AUDELIA Administration Folic Acid 1 mg 04/01/21 09:00 04/02/21 08:40 Folic Acid 1 Mg Tablet PO 1 mg DAILY AUDELIA Administration Gabapentin 100 mg 03/30/21 09:00 04/02/21 16:46 Gabapentin 100 Mg Capsule PO 100 mg TID AUDELIA Administration Mirtazapine 15 mg 03/30/21 09:00 04/02/21 08:40 Mirtazapine 15 Mg Tablet PO 15 mg DAILY AUDELIA Administration Morphine Sulfate 2 mg 03/31/21 10:51 Morphine Sulfate (*Crx) 2 Mg/Ml Inj IV PUSH Q6HR PRN Pain Rated 7-10 Multivitamins Therapeutic 1 tablet 03/30/21 09:00 04/02/21 08:40 Multivitamins Therapeutic Tab (*Bkc) PO 1 tablet DAILY AUDELIA Administration Ondansetron HCl 4 mg 03/29/21 16:02 Ondansetron Inj 4 Mg/2 Ml Vial IV PUSH Q4H PRN Nausea Pantoprazole Sodium
--- NOTE | 2021-04-03 07:17 | PM.IMPN ---
Progress Note: A&P Assessment and Plan (1) Erosive esophagitis: Code(s): K22.10 - Ulcer of esophagus without bleeding Status: Acute (2) Melena: Code(s): K92.1 - Melena Status: Acute (3) Acute GI bleeding: Code(s): K92.2 - Gastrointestinal hemorrhage, unspecified Status: Acute Additional Plan 1. Acute blood loss anemia due to GI bleed -upper GI bleed in nature with bleeding ulcer at gastroesophageal junction. Hemoglobin down to 7.0, status post 1 unit packed red blood cells -GI consult with Dr. Chun with a recommendations appreciated. Endoscopy performed on 03/31 showed esophagitis. A bleeding unilateral ulcer at gastro esophageal junction was seen with mild oozing a blood which was cauterized. He had a duodenal ulcer as well which was nonbleeding. Gastroenterology service will plan for repeat endoscopy in 8 weeks. - Pantoprazole transitioned from IV to p.o. 04/01. He will be on b.i.d. dosing for 4 weeks which will be transitioned to oral once a day. - Sucralfate for healing of ulcer for the next 4 weeks. - Zofran for nausea -he seems to be tolerating diet. - Continue to monitor H&H. Still having dark-colored stool with bowel movement yesterday. - He has history of esophageal cancer with esophagectomy. He has received radiation and chemotherapy about a year ago. He has been getting his care through [facility]. He was last seen by his oncologist about a month ago. Hypotension: Will start him on midodrine. Continue to monitor hemodynamics closely. 2. Syncopal episodes: - Likely secondary to anemia, positive orthostatics, given IV hydration, will continue supportive care, will stop IVF today and see how he does without it in anticipation for possible discharge tomorrow 3. Closed fracture of left clavicle: - Left upper extremity in sling, no surgical indication at this time -pain control with morphine and [place]. Deescalate opiates if pain is adequately controlled. 4. Underweight due to inadequate caloric intake: -Patient will need mealtime ensures and supplement. He has lost significant amount of weight. -mirtazapine for appetite stimulant 5. Chemotherapy-induced neuropathy: - Continue home gabapentin 6. Alcohol abuse: -continue thiamine and multivitamin and folic acid -p.r.n. Xanax for alcohol withdrawal. Will discontinue CIWA protocol. He is not requiring any Ativan dosing. -vocational case manager to provide resources for alcohol abuse DVT prophylaxis: SCDs, likely acute GI bleed so no blood thinners GI prophylaxis: Protonix is b.i.d. dosing PT OT following Code status: Full code Disposition: Given drop in hemoglobin and soft blood pressure, we will monitor for another day, if his hemoglobin is stable tomorrow with improvement in his blood pressure plan for discharge Subjective Date/time seen: 04/03/21 07:17 His blood pressure still on the lower side with some of the reading in mid 80s. He is not symptomatic. He had a bowel movement yesterday which was dark in color. He denied have any fresh: Blood or any melena. Review of Systems Review of Systems: All systems reviewed & are unremarkable except as noted in HPI and below Exam Narrative: Gen: Alert, NAD Abd: Soft, NT, ND Heart: RRR Lungs: CTAB Ext: No lower extremity edema Objective Data Vital Signs Vital Signs: Vital Signs - 24 hr 04/02/21 07:55 04/02/21 08:00 04/02/21 08:05 Temperature 36.1 C L 36.2 C L 36.1 C L Pulse Rate 88 66 65 Respiratory Rate 14 14 16 Blood Pressure 87/61 L 89/61 L 88/58 L Pulse Oximetry 98 100 100 04/02/21 14:00 04/02/21 22:00 04/03/21 06:00 Temperature 36.1 C L 36.8 C 36.3 C L Pulse Rate 88 71 72 Respiratory Rate 14 18 18 Blood Pressure 87/61 L 96/56 L 99/55 L Pulse Oximetry 98 100 100 Intake/Output Intake/Output: Intake & Output 03/31/21 04/01/21 04/02/21 04/03/21 23:59 23:59 23:59 23:59 Intake Total 2670 3450 3590 250 Output Total 1600
[2021-04-03] MEDS: CHOLECALCIFEROL 1,000 UNITS TABLET 1000 UNITS PO (08:29)
[2021-04-03] MEDS: FOLIC ACID 1 MG TABLET PO (08:29)
[2021-04-03] MEDS: MIRTAZAPINE 15 MG TABLET PO (08:29)
[2021-04-03] MEDS: GABAPENTIN 100 MG CAPSULE PO ×3 (08:29→17:05)
[2021-04-03] MEDS: THIAMINE HCL 100 MG TABLET PO (08:29)
[2021-04-03] MEDS: MULTIVITAMINS THERAPEUTIC TAB (*BKC) 1 TABLET PO (08:29)
[2021-04-03] MEDS: CYANOCOBALAMIN 1,000 MCG TABLET 1000 MCG PO (08:29)
[2021-04-03] MEDS: MIDODRINE HCL 10 MG TABLET PO ×2 (12:19→17:05)
[2021-04-03] MEDS: PANTOPRAZOLE 40 MG TABLET PO ×2 (12:19→21:34)
[2021-04-03 14:00] VITALS: BP 101/59; PULSE 71; RESP 20; TEMP 36; O2SAT 98
[2021-04-03 14:39] VITALS: BP 106/69
[2021-04-03] MEDS: ALPRAZolam (*CRX) 0.5 MG TABLET 1 MG PO (21:37)
[2021-04-03 22:00] VITALS: BP 92/57; PULSE 48; RESP 18; TEMP 36.2; O2SAT 100
[2021-04-04 06:00] VITALS: BP 95/57; PULSE 45; RESP 18; TEMP 36.3; O2SAT 99
[2021-04-04] MEDS: SUCRALFATE 1 GM TABLET PO (06:12)
[2021-04-04 07:35] LABS: Hematocrit 25.4 % (42.0-52.0); Hemoglobin 8.1 g/dL (14.0-18.0)
[2021-04-04] MEDS: CYANOCOBALAMIN 1,000 MCG TABLET 1000 MCG PO (09:45)
[2021-04-04] MEDS: GABAPENTIN 100 MG CAPSULE PO (09:45)
[2021-04-04] MEDS: THIAMINE HCL 100 MG TABLET PO (09:45)
[2021-04-04] MEDS: MIDODRINE HCL 10 MG TABLET PO (09:45)
[2021-04-04] MEDS: FOLIC ACID 1 MG TABLET PO (09:46)
[2021-04-04] MEDS: MULTIVITAMINS THERAPEUTIC TAB (*BKC) 1 TABLET PO (09:46)
[2021-04-04] MEDS: CHOLECALCIFEROL 1,000 UNITS TABLET 1000 UNITS PO (09:46)
[2021-04-04] MEDS: PANTOPRAZOLE 40 MG TABLET PO (09:46)
[2021-04-04] MEDS: MIRTAZAPINE 15 MG TABLET PO (09:46)
--- NOTE | 2021-04-04 11:12 | PCOTNOTE ---
Attempted to see patient at this time, however patient declined due to discharge. Pt stated, They just came in and told me I get to go home. They said I'll be ready to go in the next hour or so.
--- NOTE | 2021-04-04 12:11 | PM.DS ---
DS: Admitting Diagnosis Admitting Diagnosis Acute GI bleeding Anemia Alcohol abuse Syncope Closed fracture of the left clavicle DS: Discharge Diagnosis Discharge Diagnosis (1) Erosive esophagitis: Code(s): K22.10 - Ulcer of esophagus without bleeding Status: Acute (2) Melena: Code(s): K92.1 - Melena Status: Acute (3) Acute GI bleeding: Code(s): K92.2 - Gastrointestinal hemorrhage, unspecified Status: Acute Assessment and Plan: 1. Acute blood loss anemia due to GI bleed -upper GI bleed in nature with bleeding ulcer at gastroesophageal junction. Hemoglobin down to 7.0, status post 1 unit packed red blood cells -GI consult with Dr. Chun with a recommendations appreciated. Endoscopy performed on 03/31 showed esophagitis. A bleeding ulcer at gastro esophageal junction was seen with mild oozing a blood which was cauterized. He had a duodenal ulcer as well which was nonbleeding. Gastroenterology service will plan for repeat endoscopy in 8 weeks. - Pantoprazole transitioned from IV to p.o. 04/01. He will be on b.i.d. dosing for 4 weeks which will be transitioned to oral once a day. - Sucralfate for healing of ulcer for the next 4 weeks. - Zofran for nausea -he seems to be tolerating diet. - Continue to monitor H&H. Still having dark-colored stool with bowel movement yesterday. - He has history of esophageal cancer with esophagectomy. He has received radiation and chemotherapy about a year ago. He has been getting his care through [facility] at [facility]. He was last seen by his oncologist about a month ago. Hypotension: He remained consistently borderline hypotensive with most of his blood pressure readings in mid to high 90s. Very few blood pressure readings were in 80s. Some of the blood pressure reading with systolic in 100s as well. He is asymptomatic. He thinks that his blood pressure at his baseline is in early to mid 100s. He was started on midodrine and will be discharged on it. He wants offered home health aide to check on him specially his blood pressure but he refused. I asked care coordination to speak to him again to see if he agrees to it. 2. Syncopal episodes: - Likely secondary to anemia, positive orthostatics, given IV hydration, will continue supportive care. Initially hydrated with IV fluids. Later IV fluids have been stopped. 3. Closed fracture of left clavicle: - Left upper extremity in sling, no surgical indication at this time -pain control with morphine and [place] while he was hospitalized. Now he will continue Tylenol for pain control. 4. Underweight due to inadequate caloric intake: -Patient will need mealtime ensures and supplement. He has lost significant amount of weight. -mirtazapine for appetite stimulant 5. Chemotherapy-induced neuropathy: - Continue home gabapentin 6. Alcohol abuse: -continue thiamine and multivitamin and folic acid -he was on CIWA protocol while he was here in hospital but he was not scoring high on CIWA protocol which was later discontinued. He did not require any p.r.n. doses of Ativan. -mattress spring encaser to provide resources for alcohol abuse PT OT following with recommendation of discharging home. Code status: Full code Disposition: Discharge to home. He was encouraged to have home health aide and will be offered to him by care coordination. If he agrees then referrals will be made. DS: Summary Hospital Course Hospital Course: As above Time Spent with Patient Time attestation: Total time spent providing and/or coordinating discharge services: Exam Narrative: Gen: Alert, NAD Abd: Soft, NT, ND Heart: RRR Lungs: CTAB Ext: No lower extremity edema DS: Data Data Completed and Pending Labs on day of discharge: Labs from last 24 hours 04/04/21 06:56 Hgb 8.1 L Hct 25.4 L Discharge Plan Discharge Attending physician on discharge: Avery Tellez Consulting providers: Abhay Adams
--- NOTE | 2021-04-06 15:02 | PC.NURSE ---
Thien called on 04/06/21 reporting that his feet are swollen. Thien denies any other abnormal symptoms. After speaking with Dr. Tellez, I instructed Thien to call his primary care physician in the morning to set up an appointment.
== END 2021-04-04 12:15 | disposition home or self-care (01) | DRG 241 ==
LOC: ANHED 10:07 → ANH3MEDSUR 18:03
PROVIDERS: Emergency Medicine; Internal Medicine Gastroenterology; Internal Medicine Nephrology; Student in an Organized Health Care Education/Training Program; Admitting Provider Internal Medicine; Emergency Provider Nurse Practitioner; PCP Internal Medicine; Visit Provider Internal Medicine Critical Care Medicine
PROC: 0DJ08ZZ Inspection of Upper Intestinal Tract, Via Natural or Artificial Opening Endoscopic (ICD-10-PCS; CPT 43235; principal; 2021-03-31 14:00)
DX: K25.0 Acute gastric ulcer with hemorrhage (principal); D62 Acute posthemorrhagic anemia; K22.10 Ulcer of esophagus without bleeding; R55 Syncope and collapse; F41.9 Anxiety disorder, unspecified; K21.9 Gastro-esophageal reflux disease without esophagitis; S42.032A Displaced fracture of lateral end of left clavicle, initial encounter for closed fracture; G62.0 Drug-induced polyneuropathy; T45.1X5A Adverse effect of antineoplastic and immunosuppressive drugs, initial encounter; F10.10 Alcohol abuse, uncomplicated; D70.9 Neutropenia, unspecified; R63.6 Underweight; R64 Cachexia; Z68.1 Body mass index [BMI] 19.9 or less, adult; Z85.01 Personal history of malignant neoplasm of esophagus; Z87.891 Personal history of nicotine dependence; W19.XXXA Unspecified fall, initial encounter
CPT/HCPCS: 36415; 36430; 70450; 71260; 72125; 73030; 74177; 80048; 80053; 80307; 81001; 82550; 82607; 82746; 83690; 83735; 84484; 85014; 85018; 85025; 85027; 85610; 85730; 86850; 86900; 86901; 86920; 87081; 93005; 96360; 96361; 96374; 97116; 97161; 97165; 97530; 97535; 99285; A4565; A9270; C9113; G0378; G0379; J2704; J3411; J3475; J7030; J7050; J7120; P9016; Q9967

== ENCOUNTER 2021-05-16 11:36 | Outpatient (CLI) | payer OTHER, SELFPAY ==
[2021-05-16 11:53] LABS: Basophils Percent Auto 0.5 % (0.2-1.2); Eosinophils Absolute Auto 0.1 K/mm3 (0-0.3); Eosinophils Percent Auto 1.3 % (0-4.4); Hematocrit 37.5 % (42.0-52.0); Hemoglobin 12.3 g/dL (14.0-18.0); Immature Granulocyte Absolute 0.03 K/mm3 (0.00-0.031); Immature Granulocyte Percent A 0.5 % (0-0.5); Lymphocytes Absolute Auto 1.18 K/mm3 (0.9-3.2); Lymphocytes Percent Auto 21.6 % (18.3-44.2); Mean Corpuscular HGB Conc 32.8 g/dl (32-36); Mean Corpuscular Hemoglobin 36.4 pg (26-34); Mean Corpuscular Volume 110.9 fl (80-100); Mean Platelet Volume 9.2 fl (7.4-10.4); Monocytes Absolute Auto 0.4 K/mm3 (0.1-0.6); Monocytes Percent Auto 7.3 % (2.6-8.5); Neutrophils Absolute Auto 3.8 K/mm3 (1.3-6.7); Neutrophils Percent Auto 68.8 % (45.5-73.1); Platelet Count Result 197 k/mm3 (150-375); Red Blood Count 3.38 M/mm3 (4.6-6.20); Red Cell Distribution Width 15.7 % (11.5-14.5); White Blood Count 5.5 K/mm3 (4.5-10.0)
[2021-05-16 12:10] LABS: Alanine Aminotransferase 17 U/L (4-50); Albumin Level 3.9 g/dL (3.5-5.1); Alkaline Phosphatase 125 U/L (38-126); Anion Gap 7 mmol/L (8-16); Aspartate Amino Transferase 30 U/L (17-59); Bilirubin,Total 0.4 mg/dL (0.2-1.3); Blood Urea Nitrogen 25 mg/dL (9-20); Calcium 8.8 mg/dL (8.4-10.2); Carbon Dioxide 29 mmol/L (22-30); Chloride 102 mmol/L (98-107); Estimated Glomerular Filt Rate > 60; Glucose 134 mg/dL (65-110); Potassium 3.4 mmol/L (3.4-5.0); Sodium 138 mmol/L (137-145)
== END 2021-05-16 11:37 | disposition home or self-care (01) ==
PROVIDERS: PCP Internal Medicine; Visit Provider Nurse Practitioner
DX: K92.2 Gastrointestinal hemorrhage, unspecified (principal); E83.52 Hypercalcemia
CPT/HCPCS: 36415; 80053; 85025

== ENCOUNTER 2021-06-26 11:00 | Outpatient (RCR) | payer OTHER, SELFPAY ==
--- NOTE | 2021-05-13 09:10 | PTOPEVAL ---
PHYSICAL THERAPY EVALUATION AND PLAN OF CARE Thank you for referring Thien Auguste to [facility].? The patient is scheduled to be seen for therapy? 2x/week for 4 weeks. Please review, sign, date and return this plan of care LUKE. I agree with and certify that the following plan of care is medically necessary. Referring Physician Date Attending Provider: Olga Wiley NP Evaluation Outpatient Past Medical History Neurological History Hx Other Neurological Disorders Yes: Neuropathy Cardiovascular History Hx Hypercholesterolemia Yes Respiratory History Hx Asthma Yes Gastrointestinal History Hx Gastroesophageal Reflux Disease Yes Hx Other Gastrointestinal Disorders Yes: Esophageal CA HEENT History Hx Tonsillectomy Yes Psychosocial History Hx Anxiety Yes Hx Other Psychiatric Disorders Yes: ETOH abuse Other History Hx Cancer Yes: esophogeal Hx Chemotherapy Yes: resulted in bilateral neuropathy and foot drop Diagnosis bilateral foot drop Subjective Information Has really significant Query Text:As Reported By Patient/ neuropathy after having Family chemotherapy. He cannot raise his toes up as a result - walks with bilateral foot drop . Had a fall 2-3 weeks ago and brok ehis collar bone. Most recent fall was a week ago and resulted in abrasain on left eyebrow Pain Score Pain Score 0: Self Report Lower Extremity Muscle Strength Testing Hip Strength Bilateral Hip Flexion Strength 4 Good Hip Extension Strength 3+ Fair + Hip Abduction Strength 3+ Fair + Knee Strength Bilateral Knee Flexion Strength 4 Good Knee Extension Strength 4 Good Ankle Strength Bilateral Ankle Dorsiflexion Strength 1 Trace Ankle Plantarflexion Strength 2- Poor - Ankle Strength Comments only able to perform bilateral heel raise - unable to perform unilateral Balance Assessment Tian Balance Assessment Sitting to Standing Independent w/Hands Unsupported Stance Ability Safely- 2 minutes Sitting Unsupported, Feet on Floor Safely- 2 minutes Standing to Sitting Safely, Minimal Hand Use Transfer Ability Safely, Hand Use Unsupported Stance- Eyes Closed Supervision, 10 seconds Unsupported Stance- Feet Together Independent, 1 minute Reaching Forward while Standing Safely, 2 inches 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
--- NOTE | 2021-06-10 16:40 | PTOPEVAL ---
PHYSICAL THERAPY PROGRESS REPORT Thank you for referring Thien Auguste to [facility] [place][Note 2].? The patient is scheduled to be seen for therapy? 2x/week for 4 weeks. Please review, sign, date and return this plan of care LUKE. I agree with and certify that the following plan of care is medically necessary. Referring Physician Date Attending Provider: Olga Wiley NP Progress Diagnosis bilateral foot drop Subjective Information Has really significant Query Text:As Reported By Patient/ neuropathy after having Family chemotherapy. Ed reports that he is doing a little better. Has had one fall in the last month where he stood up and his feet got tangled. He says he had no injury and was able to get up on his own. Pain Score Pain Score 0: Self Report Lower Extremity Muscle Strength Testing Hip Strength Bilateral Hip Flexion Strength 4+ Good + Hip Extension Strength 4- Good - Hip Abduction Strength 4- Good - Knee Strength Bilateral Knee Flexion Strength 4+ Good + Knee Extension Strength 4+ Good + Ankle Strength Bilateral Ankle Dorsiflexion Strength 2 Poor Ankle Plantarflexion Strength 2 Poor Balance Assessment Tian Balance Assessment Sitting to Standing Independent w/Hands Unsupported Stance Ability Safely- 2 minutes Sitting Unsupported, Feet on Floor Safely- 2 minutes Standing to Sitting Safely, Minimal Hand Use Transfer Ability Safely, Hand Use Unsupported Stance- Eyes Closed Supervision, 10 seconds Unsupported Stance- Feet Together Independent, 1 minute Reaching Forward while Standing Safely, 5 inches manager occupational Object From Floor Supervision Look Behind Shoulder - Standing Shifts Weight Unilateral Turning 360 Degrees Turns Bilateral, < 4 secs Unsupported Stance, Alternating Feet on 4 Steps w/Supervision Stair Unsupported Tandem Stance Small Step- 30 seconds Unilateral Leg Stance Lifts Leg/Unable to Hold TIAN Balance Evaluation Total Score (/56 43 points) Comments 1 month ago = 38/56 Time Up Go (TUG) Timed Up and Go Test (TUG) (Seconds) 15 Assistive Devices None Comments 1month ago = 17seconds 5 Time Sit to Stand Time in Seconds 18.7 5 Time Sit to Stand Comments 1month ago = 19.8seconds Query Text:Normative Data: If Greater Than 15 Seconds, 74% Increase Risk for Recurrent Falls Gait Assessment Gait Pattern Assessment Gait Pattern Steppage Gait,Wide Based Gait Other Gait Observations bilateral drop foot requiring
--- NOTE | 2021-07-01 13:02 | PCPTNOTE ---
Patient called and states he has to cancel his appointment because he is at another appointment.
--- NOTE | 2021-07-07 11:56 | PCPTNOTE ---
Patient no showed to scheduled appointment when further looking into patient's chart system noted of patient . When looking further patient was announced yesterday 07/06 will discharge patient chart.
--- NOTE | 2021-07-07 13:12 | PCPTNOTE ---
PHYSICAL THERAPY DISCHARGE NOTE Attending Provider: Olga Wiley NP Patient:Thien Auguste Date of :1960 Thien on 07/06/2021, therefore his account for physical therapy will be closed. Please review, sign, date and return LUKE. I have been updated about the patient's current status and I agree with discharge from the above service at this time. Referring Physician Date
== END 2021-07-08 09:25 | disposition other institution (70) ==
LOC: ANHPT 11:00
PROVIDERS: PCP Internal Medicine; Visit Provider Nurse Practitioner
DX: M21.371 Foot drop, right foot (principal); M21.372 Foot drop, left foot
CPT/HCPCS: 36415; 80053; 85025; 97014; 97110; 97112; 97162; G0283

== ENCOUNTER 2021-07-05 18:28 | Inpatient (IN) | payer OTHER, SELFPAY ==
--- NOTE | ~2021-07-05 | CT_ITS ---
EXAMINATION: CT brain wo con, CT cervical spine wo con EXAM DATE: 07/05/2021 19:55 INDICATION: Fall down stairs, found on ground. Head injury. TECHNIQUE: Spiral CT of the head was performed without contrast. Axial, coronal and sagittal images were reviewed. Spiral CT of the cervical spine was performed without contrast. Axial images were rev iewed. Coronal and sagittal reformatted images were also reviewed. The dose-length product (DLP) fo r this examination was 681.00 (accession [id number]), 204.18 (accession [id number]) mGy-cm. The exposure was tailored according to patient size, and iterative reconstruction (ASIR) was used as additional dose reduction technique. Comparison is made to prior examination from 03/29/2021. FINDINGS: HEAD CT: Small calcification right frontal periventricular white matter unchanged, likely dystrophic, not a clinically significant finding. There is no acute intraparenchymal hemorrhage. No evidence of intraparenchymal brain mass lesion. No evidence of acute infarction. There is mild periventricular and subcortical hypodensity, nonspecific but probably related to small vessel ischemic disease. The re is mild to moderate prominence of the sulci and ventricles related to cerebral atrophy. There i s no mass effect or midline shift. There is no obstructive hydrocephalus suspected. There are no ext ra-axial collections. There are no acute calvarial fractures. The orbits are unremarkable. Small p osterior vertex scalp contusion. Mild bilateral ethmoid mucoperiosteal thickening. CERVICAL CT: There are subacute left 3rd rib fracture posteriorly. Moderate disc disease at C5-6, mod erate to severe bilateral neural foraminal stenosis at that level, left more than right. There is no evidence of acute cervical fracture. The odontoid process is intact. Pre-dens space is normal. Pre vertebral soft tissue is normal. There are no soft tissue abnormalities identified. There is no dis c space widening or traumatic vertebral body subluxation suspected. A detailed level by level evalu ation of spondylosis can be added as addendum if requested. IMPRESSION: 1. No acute intracranial findings or cervical fracture. 2. C5-6 moderate to severe neural foraminal stenosis. 3. Subacute left 3rd rib fracture posteriorly. 4. Small posterior vertex scalp contusion. Reviewed, dictated and finalized at location A. METER REPAIRER IMPRESSION: 1. No acute intracranial findings or cervical fracture. 2. C5-6 moderate to severe neural foraminal stenosis. 3. Subacute left 3rd rib fracture posteriorly. 4. Small posterior vertex scalp contusion.
--- NOTE | ~2021-07-05 | XR_ITS ---
EXAMINATION: XR chest ET placement EXAM DATE: 07/06/2021 01:12 INDICATION: Intubated. TECHNIQUE: Portable AP frontal chest x-ray was obtained. Comparison is made to prior examination from 07/05/2021. FINDINGS: Endotracheal tube in expected position. The feeding tube is present within the intrathoraci c gastric pull-through, adequate. Development of moderate amount of right midlung zone acute airspace disease, smaller amount of left b asilar airspace disease, could be pneumonia, aspiration pneumonia more likely than edema. Heart is no rmal in size. There is small right pleural effusion. No pneumothorax. IMPRESSION: 1. Development of moderate right perihilar, left lower lobe pneumonia or aspiration pneumonia. 2. Tubes in position. Reviewed, dictated and finalized at location A. OBIOLOGIST IMPRESSION: 1. Development of moderate right perihilar, left lower lobe pneumonia or aspir ation pneumonia. 2. Tubes in position.
--- NOTE | ~2021-07-05 | NM_ITS ---
EXAMINATION: NM pulmonary perfusion EXAM DATE: 07/05/2021 22:56 INDICATION: hypoxia hx of malignancy. TECHNIQUE: A perfusion lung scan was performed. The patient was injected with 5 mCi technetium 99m M AA and imaged. PISAPED criteria used for interpretation of perfusion without ventilation study (pulmo nary embolism present, absent or nondiagnostic exam). There is no prior study for comparison. FINDINGS: Patient has peripheral defect along the right lateral margin, corresponding to location of surgical c hanges, pleural thickening identified on CT subsequently obtained. Otherwise mildly heterogeneous per fusion without focal defects. IMPRESSION: Pulmonary embolism absent. Reviewed, dictated and finalized at location A. UNICATIONS ADVISOR IMPRESSION: Pulmonary embolism absent.
--- NOTE | ~2021-07-05 | CT_ITS ---
EXAMINATION: CT chest abdomen pelvis wo con EXAM DATE: 07/06/2021 06:36 INDICATION: Fall. Respiratory failure. TECHNIQUE: Spiral CT of the chest, abdomen and pelvis was performed without contrast. Axial, sutton l and sagittal images chest, abdomen and pelvis were reviewed. Coronal maximum intensity pixel image s of chest reviewed. The dose-length product (DLP) for this examination was 432.01 mGy-cm. The expo sure was tailored according to patient size (auto mA exposure control), and iterative reconstruction (ASIR) was used as additional dose reduction technique. Comparison is made to prior examination from 03/29/2021. FINDINGS: CHEST: Endotracheal tube and nasogastric tube are in position. Surgical changes from gastric pull-th rough. There is posterior lower lobe predominant airspace disease consistent with pneumonia, could be aspiration etiology. Some of these lower lobe segmental bronchi appear occluded. Heart is normal in size. The interventricular septum is perceptible, suggesting patient is anemic. No thoracic lymphaden opathy suspected. Surgical changes from right-sided thoracotomy. Chronic right pleural thickening. Tr pj bilateral pleural or pericardial effusions. Subacute left 3rd rib fracture posteriorly. Old right rib fractures. There are no acute fractures identified. ABDOMEN PELVIS: Right-sided common femoral venous line. Moderate generalized body wall, mesenteric ed essence. Small amount of reactive free pelvic fluid. There is 3.9 cm mid abdominal aortic fusiform aneury sm unchanged. No rupture. There is some ectasia of the common iliac arteries. Moderate aortoiliac art erial sclerosis. The liver, spleen, adrenal glands and pancreas are unremarkable. Gallbladder moder ately distended with small calcified cholelithiasis. Punctate bilateral nonobstructing calyceal ston es. The prostate is unremarkable. The bladder is collapsed with Jolly catheter balloon anchor insid e. There is no retroperitoneal or pelvic lymphadenopathy. There are no findings to suggest appendicitis. The stomach and small bowel are unremarkable. There is ascending colonic fluid. No pneumatosis. No free intraperitoneal gas. There are no acute fract ures identified. IMPRESSION: 1. Segmental bibasilar pneumonia or aspiration pneumonia. 2. Distended gallbladder with cholelithiasis. No adjacent inflammation. 3. Generalized body wall, mesenteric fat stranding and small reactive pelvic fluid. 4. Abdominal aortic 3.9 cm aneurysm. 5. Punctate bilateral nephrolithiasis. 6. Subacute left 3rd rib fracture. No acute fracture or solid organ laceration. 7. Tubes, line in position. Reviewed, dictated and finalized at location A. TRONIC SCIENCE TEACHER IMPRESSION: 1. Segmental bibasilar pneumonia or aspiration pneumonia. 2. Distended gallbladder with cholelithiasis. No adjacent inflammation. 3. Generalized body wall, mesenteric fat stranding and small reactive pelvic f luid. 4. Abdominal aortic 3.9 cm aneurysm. 5. Punctate bilateral nephrolithiasis. 6. Subacute left 3rd rib fracture. No acute fracture or solid organ laceration . 7. Tubes, line in position.
--- NOTE | ~2021-07-05 | XR_ITS ---
EXAMINATION: XR abdomen NG/feed tube insert EXAM DATE: 07/06/2021 01:12 INDICATION: ng placement. TECHNIQUE: Frontal projection(s) of the abdomen for interpretation. There is no prior study for moreno león. FINDINGS: Feeding tube tip at the gastroesophageal junction level, adequately considering patient has gastric pull-through with intrathoracic stomach. There are old right rib fractures. Nonobstructive u pper abdominal bowel gas pattern. Right perihilar, left lower lobe acute airspace disease. IMPRESSION: 1. Nasogastric tube in position. Reviewed, dictated and finalized at location A. ET ANALYST
--- NOTE | ~2021-07-05 | XR_ITS ---
EXAMINATION: XR chest 2V EXAM DATE: 07/05/2021 20:00 INDICATION: Esophageal cancer. Head injury. TECHNIQUE: Frontal and lateral projections of the chest obtained and reviewed. There is no prior venus dy for comparison. FINDINGS: Surgical changes, right sided thoracotomy. Left upper lobe granuloma. No confluent consoli dation, pneumothorax or pleural effusion suspected. Cardiomediastinal silhouette is normal. There is subacute left clavicular fracture distally. IMPRESSION: No acute cardiopulmonary findings. Reviewed, dictated and finalized at location A. SUPPORT TECHNICIANS
[2021-07-05 18:40] VITALS: BP 80/55; PULSE 64; RESP 21; TEMP 36.1; O2SAT 99
[2021-07-05 19:10] VITALS: BP 98/73; PULSE 65; RESP 20; O2SAT 92
--- NOTE | 2021-07-05 19:42 | ECG_ITS ---
Measurements Intervals [place] Rate: 67 P: [place]: 0 QRS: 74 QRSD: 116 T: -4 QT: 469 QTc: 497 Interpretive Statements SINUS OR ECTOPIC ATRIAL RHYTHM INCOMPLETE RIGHT BUNDLE BRANCH BLOCK BORDERLINE T WAVE ABNORMALITY- INFERIOR LEADS BASELINE ARTIFACT- I, II, III, AVR, AVL, AVF, V1-V6 BORDERLINE ECG Electronically Signed On 07-06-2021 7:18:07 REGRINDER OPERATOR by Marlon Zuniga D.O.
--- NOTE | 2021-07-05 20:04 | ED.FALL ---
HPI - Fall General Chief Complaint: Fall Stated Complaint: weakness Time Seen by Provider: 07/05/21 19:24 Source: patient, EMS, RN notes reviewed and old records reviewed History of Present Illness HPI Narrative: patient was found on the ground by his neighbor with a bottle of liquor nearby. EMS reports patient was on the ground for several hours. Patient states his mouth is too dry and he cannot answer questions. On chart review patient has a history of esophageal cancer alcohol abuse and prior GI bleeds. Related Data Home Medications Medication Instructions Recorded Confirmed ascorbic acid (vitamin C) 500 mg 500 mg PO DAILY 09/23/20 05/02/21 tablet cholecalciferol (vitamin D3) 25 1,000 unit PO DAILY cap 09/23/20 05/02/21 mcg (1,000 unit) capsule cyanocobalamin (vitamin B-12) 1,000 mcg PO DAILY 09/23/20 05/02/21 1,000 mcg tablet multivitamin 1 tablet PO DAILY 09/23/20 05/02/21 gabapentin 600 mg tablet 600 mg PO TID 05/20/21 Allergies Allergy/AdvReac Type Severity Reaction Status Date / Time No Known Allergies Allergy Verified 07/05/21 18:42 Review of Systems Review of Systems: ROS unobtainable: Yes unobtainable due to mental status PMFSH Past Medical History Medical History (Updated 07/06/21 @ 05:06 by Castillo Navas MD) AAA (abdominal aortic aneurysm) CT abdomen pelvis 01/28/2021 4 cm abdominal aortic aneurysm stable in size with interval increase in partial thrombus Alcohol abuse Anxiety Asthma Chemotherapy-induced neuropathy Chronic kidney disease, stage 3 Esophageal cancer 07/01/2019 EGD demonstrated circumferential bulky cancer distal esophagus with pathology consistent for invasive adenocarcinoma moderately differentiated. Concurrent chemo (Carboplatinum and Taxol) and radiation therapy August 2018 through September 2019 GERD (gastroesophageal reflux disease) High blood cholesterol History of GI bleed 03/31/2021 gastric ulcer and esophageal ulcer at the almas-GE junction with bleeding Syncopal episodes Surgical History Surgical History (Updated 07/06/21 @ 04:04 by Shantell Snow DO) History of esophagectomy (01/01/20) Esophagectomy with partial gastrectomy 01/01/2020 complicated by esophageal leak and had G-tube placed History of facial surgery History of parotidectomy (~2003) Bilateral History of thoracic surgery History of vagotomy Hx of tonsillectomy Family History Family History Mother , at age 90 Hypertension Heart disease Breast cancer Father , at age 42 Heart attack Other Diabetes mellitus Heart disease Social History Social History Social History: He lives in his own home. 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 He has an intermittent history of alcohol abuse drinking up to 1 pt of alcohol 3 to 4 times a week. He used to smoke 2 packs of cigarettes per day but quit smoking in 2019 prior to his esophageal surgery. He started smoking as a teenager. Caffeine-Coffee Smoking packs per day: 2 Smoking cigarettes per day: 40.0 Years smoked: 40 Smoking pack-years: 80.00 Smoking status: Former smoker Tobacco type: cigarettes Second hand tobacco smoke exposure: Yes Smoking end date: 12/15/19 Alcohol intake: current Alcohol use details: occasional drinking Substance use: never Additional occupation/education comments: disabled Gender identity (if verbalized by the patient): Male Sexual Orientation (if Verbalized by the Patient): Straight or Heterosexual Spiritual care concerns: No Course Reevaluation(s) Reevaluation #1: Patient reassessed he is more talkative. He reports he was going to the bathroom and fell. Reports he has poor mobility due to his neuropathy. Reports he was on the ground for
[2021-07-05] MEDS: THIAMINE HCL 200 MG/2 ML VIAL 100 MG IV PUSH (20:34)
[2021-07-05] MEDS: SODIUM CHLORIDE 0.9% IV 500 ML 999 ML IV CONT (20:34)
[2021-07-05 20:52] LABS: Base Excess ABG -9.4 mEq/l (+/-2.0); Fractional Inspired Oxygen 100 %; HCO3 ABG 16.1 mEq/l (22.0-26.0); Oxygen Saturation ABG 96.6 % (95.0-100.0); Oxyhemoglobin 95.2 % THb (90.0-100.0); PCO2 ABG 33.9 mmHg (35.0-45.0); PO2 ABG 95.1 mmHg (80.0-100.0); PO2 FiO2 Ratio Arterial Blood 0.95 %; Total Hemoglobin 11.9 g/dL (12.0-18.0)
[2021-07-05 20:54] LABS: Basophils Percent Auto 0.6 % (0.2-1.2); Hematocrit 32.2 % (42.0-52.0); Hemoglobin 11.2 g/dL (14.0-18.0); Immature Granulocyte Absolute 0.05 K/mm3 (0.00-0.031); Immature Granulocyte Percent A 2.9 % (0-0.5); Immature Platelet Fraction Pct 5.8 % (0.9-11.2); Lymphocytes Absolute Auto 0.16 K/mm3 (0.9-3.2); Lymphocytes Percent Auto 9.1 % (18.3-44.2); Mean Corpuscular HGB Conc 34.8 g/dl (32-36); Mean Corpuscular Volume 106.3 fl (80-100); Mean Platelet Volume 10.6 fl (7.4-10.4); Monocytes Absolute Auto 0.1 K/mm3 (0.1-0.6); Monocytes Percent Auto 6.9 % (2.6-8.5); Neutrophils Absolute Auto 1.4 K/mm3 (1.3-6.7); Neutrophils Percent Auto 80.5 % (45.5-73.1); Platelet Count Result 37 k/mm3 (150-375); Red Blood Count 3.03 M/mm3 (4.6-6.20); Red Cell Distribution Width 14.5 % (11.5-14.5)
[2021-07-05 20:54] LABS: Device NON-REBREATHER MASK; Modified Allen's Test Pass; Site Drawn LEFT RADIAL; pH ABG 7.294 (7.350-7.450)
[2021-07-05 21:00] LABS: INR 1.2; Partial Thromboplastin Time 34.5 SECONDS (22.3-36.8); Prothrombin Time 14.8 Seconds (11.1-14.7)
[2021-07-05 21:01] LABS: Acetaminophen < 10 ug/mL (10-30); Ammonia < 9 umol/L (9-30); Ethanol < 10 mg/dL (<10); Salicylate < 1.0 mg/dL (2-20)
[2021-07-05 21:02] LABS: Lactic Acid Reflex 1.9 mmol/L (0.7-2.1)
[2021-07-05 21:03] LABS: Alanine Aminotransferase 42 U/L (4-50); Albumin Level 3.5 g/dL (3.5-5.1); Alkaline Phosphatase 126 U/L (38-126); Anion Gap 19 mmol/L (8-16); Aspartate Amino Transferase 137 U/L (17-59); Bilirubin,Total 1.5 mg/dL (0.2-1.3); Blood Urea Nitrogen 56 mg/dL (9-20); Carbon Dioxide 21 mmol/L (22-30); Chloride 104 mmol/L (98-107); Estimated CRCL calculation 19 ml/min; Estimated Glomerular Filt Rate 24; Glucose 158 mg/dL (65-110); Potassium 4.9 mmol/L (3.4-5.0); Sodium 144 mmol/L (137-145)
[2021-07-05 21:09] LABS: Creatine Kinase 2425 U/L (55-170)
[2021-07-05 21:18] LABS: White Blood Count 1.8 K/mm3 (4.5-10.0)
[2021-07-05] MEDS: SODIUM CHLORIDE 0.9% IV 1,000 ML 999 ML IV CONT (21:29)
[2021-07-05 21:30] VITALS: BP 118/67; PULSE 73; RESP 19; O2SAT 95
[2021-07-06] VITALS (95 sets, daily range): BP systolic 49–146; BP diastolic 20–101; PULSE 48–105; RESP 11–31; TEMP 32.2–37.6; O2SAT 88–100; BMI 19.0
[2021-07-06 00:29] LABS: Alveolar/Arterial O2 Gradient 491.5 mmHg; Base Excess ABG -13.5 mEq/l (+/-2.0); Fractional Inspired Oxygen 100 %; HCO3 ABG 20.8 mEq/l (22.0-26.0); Oxygen Content ABG 12.9 %vol (16.0-22.0); Oxygen Saturation ABG 90.9 % (95.0-100.0); Oxyhemoglobin 91.1 % THb (90.0-100.0); PO2 ABG 103.5 mmHg (80.0-100.0); PO2 FiO2 Ratio Arterial Blood 1.03 %; Total Hemoglobin 9.9 g/dL (12.0-18.0)
[2021-07-06 00:31] LABS: Alanine Aminotransferase 43 U/L (4-50); Albumin Level 3.3 g/dL (3.5-5.1); Alkaline Phosphatase 113 U/L (38-126); Anion Gap 18 mmol/L (8-16); Aspartate Amino Transferase 132 U/L (17-59); Bilirubin,Total 1.2 mg/dL (0.2-1.3); Blood Urea Nitrogen 54 mg/dL (9-20); Calcium 7.3 mg/dL (8.4-10.2); Carbon Dioxide 18 mmol/L (22-30); Chloride 108 mmol/L (98-107); Estimated CRCL calculation 21 ml/min; Estimated Glomerular Filt Rate 26; Glucose 138 mg/dL (65-110); Potassium 4.6 mmol/L (3.4-5.0); Sodium 144 mmol/L (137-145)
[2021-07-06 00:31] LABS: Device NON-REBREATHER MASK; Site Drawn RIGHT BRACHIAL; pH ABG 6.864 (7.350-7.450)
--- NOTE | 2021-07-06 00:31 | PC.NURSE ---
PT heart rated noted at 45 - at 0031 atropine given vrbo. at 0024 bicarb given vrbo at 0034 calcium given vrbo heart rate noted at 50 -- bp 49/29 pt on 15 L non rebreather pt at 96% o2. 1240 etomidate given 1241 succinylcholine given atropine given at 0042 epi given at 0042 Dr placed 7.5 ET tube- when Resp attempted to fill balloon, balloon was not inflating. Dr then extubated ET tube and placed another 7. 5 ET tube 23 at the lip at 0053 Placed abbott and NG tube. Xray taken for placement. states placement is correct for ng tube and et tube.
[2021-07-06 00:59] LABS: Troponin I 0.086 ng/mL (0.000-0.034)
[2021-07-06 01:26] LABS: Alveolar/Arterial O2 Gradient 124.4 mmHg; Carboxyhemoglobin 0.3 % THb (0-2.0); Fractional Inspired Oxygen 100 %; HCO3 ABG 19.1 mEq/l (22.0-26.0); Methemoglobin ABG 0.2 %THb (0-1.5); Oxygen Content ABG 17.1 %vol (16.0-22.0); Oxygen Saturation ABG 99.7 % (95.0-100.0); Oxyhemoglobin 98.5 % THb (90.0-100.0); PO2 ABG 508.2 mmHg (80.0-100.0); PO2 FiO2 Ratio Arterial Blood 5.08 %; Total Hemoglobin 11.3 g/dL (12.0-18.0)
[2021-07-06 01:28] LABS: Device VENTILATOR; Modified Allen's Test Pass; PCO2 ABG 80.4 mmHg (35.0-45.0); Site Drawn LEFT RADIAL; pH ABG 6.993 (7.350-7.450)
[2021-07-06 01:29] LABS: Arterial Blood Gas PEEP 5 cmH2O; Arterial Blood Gas Tidal Volume 400 ml; Arterial Blood Gas Vent Mode CMV; Arterial Blood Gas Ventilator rate 20 /MIN
[2021-07-06] MEDS: SODIUM BICARBONATE 8.4% 150 MEQ in DEXTROSE 5% 1,000 ML 950 ML 50 MEQ IV CONT (01:46)
--- NOTE | 2021-07-06 01:50 | PM.IMHP ---
H&P: HPI History of Present Illness Date/Time: 07/06/21 01:50 Chief Complaint: On the floor for several hours Narrative: 60-year-old male with past medical history of esophageal cancer status post esophagectomy with pull-through and vagotomy, prior parotid cancer, alcoholism and chronic borderline low blood pressures who presented to the ER via EMS after having fallen. The patient was found by a neighbor and had been on the floor for several hours. EMS found a bottle of liquor near the patient but he denied drinking anything today. On EMS arrival to the scene the patient had glucose of 43. He received 350 mL of D10 and repeat blood sugar was 250. The patient had evidently told the ER that he was going to the bathroom and fell. He is a chronically unstable on his feet due to peripheral neuropathy from prior chemotherapy. The patient had denied any focal areas of pain to the ER staff. He denied any lightheadedness or prodrome. Initial labs suggested primary metabolic acidosis, with respiratory compensation. After I had accepted the patient for admission to the IMU the patient's suddenly became profoundly bradycardic and less responsive. ER staff obtained repeat ABG which demonstrated persisted briskly worsening acidosis but now with hypercarbia instead of previously noted low pCO2. The patient required 2 doses of atropine, bicarb pushes, calcium chloride. He was emergently intubated. Post intubation the patient was profoundly hypotensive. He received an additional 1 L bolus for a total of 2.5 L in bolus. Initial temperature to noted in the ER was 97?. However on arrival to the ICU patient's temperature was 90? with Jolly temperature probe. The patient's heart rate dropped again prior to transferring to the ICU and patient was placed on peripheral dopamine. Placed a central line when the patient arrived to the ICU. Patient's blood pressures had improved with dopamine. Heart rate also improved up to 80. Shortly after arriving to the ICU the patient woke up on the vent and was following commands. He was nodding yes and no appropriately to questions. Patient was noted have numerous areas of bruising suggesting repeated falls recently. Patient does have a history of borderline low blood pressures at baseline and has been orthostatic in the past. The patient does not have a known history of cirrhosis but does still intermittently binge drink. Suction tubing in the ER did demonstrate about 100 mL of bright red secretions. There is a small amount of blood oozing from the tip patient's penis. Review of Systems Review of Systems: ROS unobtainable: Yes unobtainable due to endotracheal tube PMFSH Past Medical History Medical History (Updated 07/06/21 @ 04:19 by Shantell Snow DO) AAA (abdominal aortic aneurysm) CT abdomen pelvis 01/28/2021 4 cm abdominal aortic aneurysm stable in size with interval increase in partial thrombus Alcohol abuse Anxiety Asthma Chemotherapy-induced neuropathy Chronic kidney disease, stage 3 Esophageal cancer 07/01/2019 EGD demonstrated circumferential bulky cancer distal esophagus with pathology consistent for invasive adenocarcinoma moderately differentiated. Concurrent chemo (Carboplatinum and Taxol) and radiation therapy August 2018 through September 2019 GERD (gastroesophageal reflux disease) High blood cholesterol History of GI bleed 03/31/2021 gastric ulcer and esophageal ulcer at the almas-GE junction with bleeding Syncopal episodes Surgical History Surgical History (Updated 07/06/21 @ 04:04 by Shantell Snow DO) History of esophagectomy (01/01/20) Esophagectomy with partial gastrectomy 01/01/2020 complicated by esophageal leak and had G-tube placed History of facial surgery History of parotidectomy (~2003) Bilateral History of thoracic surgery History of vagotomy Hx of tonsillectomy Family History Family History Mother , at
[2021-07-06 01:53] LABS: Glucose Point of Care 172 mg/dl (65-105)
[2021-07-06] MEDS: DOPamine 400 MG/D5W 250 ML 400 MG/250 ML BAG IV CONT (01:57)
[2021-07-06] MEDS: RAPID SEQUENCE INTUBATION KIT 1 EACH (01:58)
[2021-07-06] MEDS: CALCIUM CHLORIDE 1,000 MG/10 ML SYRINGE 1000 MG IV PUSH (01:58)
[2021-07-06] MEDS: SODIUM BICARBONATE 8.4% 50 MEQ/50 ML SYRINGE IV PUSH (01:58)
[2021-07-06] MEDS: SODIUM CHLORIDE 0.9% IV 1,000 ML 999 ML IV CONT ×3 (01:58→17:03)
--- NOTE | 2021-07-06 02:15 | ADMGEN ---
This patient, Thien Auguste, was admitted to Intensive Care Unit-2. Patient/family oriented to hospital policies and general routines including ID bracelet, bed and alarms, visiting hours, pain management, procedures, bathroom and other care routines, personal items, smoking policy, room service/diet, and visiting hours. Information on how to activate the Rapid Response Team has been discussed. Patient/Family are encouraged to report perceived risks to care and to ask questions if they do not understand what they are told or what they should do.
[2021-07-06] MEDS: SODIUM BICARBONATE 8.4% 50 MEQ/50 ML SYRINGE 100 MEQ IV PUSH ×2 (02:28→17:03)
[2021-07-06] MEDS: FENTANYL 2,500MCG/NS250ML(*CRX 2,500 MCG/250 ML BAG IV CONT (02:45)
[2021-07-06] MEDS: MIDAZOLAM 100MG/NS 100ML(*CRX) 100 MG/100 ML BAG IV CONT ×2 (02:46→23:43)
--- NOTE | 2021-07-06 03:21 | P.PCNBED_ITS ---
Procedures Central Line Placement Right Femoral: Central Line Date: 07/06/21 Central Line Time: 03:00 Discussed w/ the patient/family/POA,the placement of a central venous catheter, including its clinical necessity/indication & associated potential risks, benifits and alternatives.: Yes The patient/family/POA understand(s) and acknowledge(s) the need to proceed with central venous catheter insertion as an important element of the patient's clinical management.: Yes Time Out Performed: Yes Patient Position: trendelenburg Patient placed on monitor/pulse ox: Yes Provider Prep: mask, sterile gown, sterile gloves, Max. sterile barrier precautions, cap ([place]) and hand hygiene with conventional soap/water or alcohol based hand rub Central line prep: 2% Chlorhexidine scrub Local anesthesia used: lidocaine 1% Amount of anesthesia used (ml): 5 Sterile US Technique with sterile gel/sterile probe covers: Yes Central line lumen inserted: triple Cook Islander: 7 Length (cm): 16 Depth of Insertion (cm): 16 Post Procedure: sutured in place, good blood return, all ports aspirated, flushed, capped, transparent dressing, hemostatic product, antimicrobial product, securement product and aseptic technique maintained throughout procedure Patient tolerated procedure: well Complications: none
[2021-07-06 03:58] LABS: Hematocrit 28.2 % (42.0-52.0); Hemoglobin 9.9 g/dL (14.0-18.0); Immature Platelet Fraction Pct 6.3 % (0.9-11.2); Mean Corpuscular HGB Conc 35.1 g/dl (32-36); Mean Corpuscular Hemoglobin 37.2 pg (26-34); Mean Platelet Volume 11.5 fl (7.4-10.4); Red Blood Count 2.66 M/mm3 (4.6-6.20); Red Cell Distribution Width 14.7 % (11.5-14.5)
[2021-07-06 04:04] LABS: INR 1.3; Prothrombin Time 16.2 Seconds (11.1-14.7)
[2021-07-06 04:12] LABS: Add Urine Microscopic? YES; Appearance Urine Turbid (Clear); Bacteria Urine Trace /hpf; Bilirubin Urine Negative (Negative); Blood Urine 3+ (Negative); Color Urine Amber (Yellow); Glucose Urine UA 1+ mg/dL (Negative); Ketones Urine Trace mg/dL (Negative); Leukocyte Esterase Ur 2+ LEU/UL (Negative); Mucus Urine Heavy /lpf; Nitrate Urine Negative (Negative); Protein Urine 2+ mg/dL (Negative); RBC Urine 51-75 /hpf (0-2); Specific Grav Ur 1.014 (1.001-1.035); Squamous Epithelial Cell Urine Many /hpf (Few); WBC Clumps Urine Present /HPF; WBC Urine 51-75 /hpf
[2021-07-06 04:12] LABS: Alanine Aminotransferase 40 U/L (4-50); Albumin Level 2.9 g/dL (3.5-5.1); Alkaline Phosphatase 127 U/L (38-126); Anion Gap 9 mmol/L (8-16); Aspartate Amino Transferase 147 U/L (17-59); Bilirubin,Total 1.7 mg/dL (0.2-1.3); Blood Urea Nitrogen 56 mg/dL (9-20); Calcium 7.5 mg/dL (8.4-10.2); Carbon Dioxide 30 mmol/L (22-30); Chloride 105 mmol/L (98-107); Estimated CRCL calculation 22 ml/min; Estimated Glomerular Filt Rate 28; Glucose 209 mg/dL (65-110); Potassium 4.3 mmol/L (3.4-5.0); Sodium 144 mmol/L (137-145)
[2021-07-06 04:21] LABS: Platelet Count Result 22 k/mm3 (150-375); White Blood Count 0.5 K/mm3 (4.5-10.0)
--- NOTE | 2021-07-06 04:55 | ECG_ITS ---
Measurements Intervals [place] Rate: 69 P: 75 [place]: 135 QRS: 77 QRSD: 121 T: 76 QT: 491 QTc: 529 Interpretive Statements SINUS RHYTHM INCOMPLETE LEFT BUNDLE BRANCH BLOCK PROLONGED QT INTERVAL ABNORMAL ECG Electronically Signed On 07-06-2021 17:24:17 MARKET RESEARCH CONSULTANT by Marlon Zuniga D.O.
--- NOTE | 2021-07-06 04:59 | ECG_ITS ---
Measurements Intervals [place] Rate: 47 P: 22 [place]: 136 QRS: 82 QRSD: 132 T: 75 QT: 540 QTc: 480 Interpretive Statements SINUS BRADYCARDIA WITH SINUS ARRHYTHMIA ATRIAL PREMATURE COMPLEX RIGHT BUNDLE BRANCH BLOCK BASELINE ARTIFACT- I, III, AVL, AVF, V3 ABNORMAL ECG Electronically Signed On 07-06-2021 7:21:42 HAND CROCHETER by Marlon Zuniga D.O.
[2021-07-06] MEDS: NOREPINEPHRINE 8 MG/D5W 250 ML 8 MG/250 ML BAG 9.38 MG IV CONT (05:14)
--- NOTE | 2021-07-06 05:38 | PC.NURSE ---
Spoke with daughter in person and with son on phone to update per pt care. Pt to remain full code at this time. Daughter will attempt to find newest living will that patient had made.
[2021-07-06] MEDS: CENTRAL LINE FLUSH 10 ML IV PUSH ×4 (05:53→19:56)
[2021-07-06 05:58] LABS: Base Excess ABG 3.6 mEq/l (+/-2.0); Carboxyhemoglobin 0.2 % THb (0-2.0); Fractional Inspired Oxygen 60 %; HCO3 ABG 30.3 mEq/l (22.0-26.0); Methemoglobin ABG 0.2 %THb (0-1.5); Oxygen Content ABG 14.6 %vol (16.0-22.0); Oxygen Saturation ABG 98.4 % (95.0-100.0); Oxyhemoglobin 96.9 % THb (90.0-100.0); PCO2 ABG 57.1 mmHg (35.0-45.0); PO2 FiO2 Ratio Arterial Blood 2.17 %; Reduced Hemoglobin 2.7 %THb (0-5.0); Total Hemoglobin 10.5 g/dL (12.0-18.0); pH ABG 7.343 (7.350-7.450)
[2021-07-06 05:59] LABS: Arterial Blood Gas Vent Mode CMV; Arterial Blood Gas Ventilator rate 28 /MIN; Device VENTILATOR; Modified Allen's Test Pass; Site Drawn RIGHT RADIAL
[2021-07-06 06:00] LABS: Arterial Blood Gas PEEP 5 cmH2O; Arterial Blood Gas Tidal Volume 350 ml
[2021-07-06 06:55] LABS: Troponin I 0.105 ng/mL (0.000-0.034)
[2021-07-06] MEDS: IPRATROPIUM BR 0.02% INH SOLN 0.5 MG/2.5 ML VIAL INHALATION ×3 (07:55→20:40)
[2021-07-06] MEDS: ALBUTEROL SULFATE NEB 2.5 MG/0.5 ML INH 5 MG INHALATION ×3 (07:55→20:40)
[2021-07-06] MEDS: VASOPRESSIN INJ 100 UNITS in DEXTROSE 5% 95 ML IV CONT (07:59)
[2021-07-06] MEDS: PANTOPRAZOLE SODIUM IV 40 MG VIAL IV PUSH ×2 (08:03→19:56)
[2021-07-06] MEDS: SODIUM CHLORIDE 0.45% 1,000 ML 100 ML IV CONT ×2 (08:20→17:14)
[2021-07-06] MEDS: THIAMINE HCL 200 MG/2 ML VIAL 100 MG IV PUSH (09:16)
--- NOTE | 2021-07-06 09:35 | WPDCNINT ---
Assessment and Plan Assessment and plan (1) Septic shock: Code(s): A41.9 - Sepsis, unspecified organism; R65.21 - Severe sepsis with septic shock Status: Acute Assessment and Plan: Septic shock secondary to pneumonia which is likely aspiration and UTI Continue Empiric broad spectrum antibiotics for now alberto zendejas blood cCultures sent and pending. I have also ordered urine and sputum cultures patient received close to 4 L of fluid bolus. I will change his IV fluids from bicarb to half-normal saline since his bicarb has normalized. currently on Levophed vasopressin and dopamine infusions add stress-dosed hydrocortisone (2) Bradycardia: Code(s): R00.1 - Bradycardia, unspecified Status: Acute Assessment and Plan: sinus bradycardia likely from hypothermia sepsis and hypercarbia patient was given atrial pain in ED and was started on dopamine infusion improved now and continue to titrate down dopamine as time (3) Hypothermia: Qualifiers: Encounter type: initial encounter Qualified Code(s): T68.XXXA - Hypothermia, initial encounter Code(s): T68.XXXA - Hypothermia, initial encounter Status: Acute Assessment and Plan: secondary to sepsis and environmental exposures currently on warming blanket (4) Acute hypercapnic respiratory failure: Code(s): J96.02 - Acute respiratory failure with hypercapnia Status: Acute Assessment and Plan: Continue full mechanical ventilation support to prevent hypoxemia/hypercarbia and end organ damage. ABG and PCXR reviewed and will repeat in am. Low tidal volume ventilation strategy to prevent volutrauma Bronchodilators (5) Pancytopenia: Code(s): D61.818 - Other pancytopenia Status: Acute Assessment and Plan: patient has baseline history of heavy alcohol use and now presented with septic shock. He also has baseline anemia patient is getting 2 units of platelets SCDs for now and hold any anticoagulation on PPI IV q.12 hours monitor counts and transfuse as needed (6) Rhabdomyolysis: Qualifiers: Encounter type: initial encounter Rhabdomyolysis type: traumatic Qualified Code(s): T79.6XXA - Traumatic ischemia of muscle, initial encounter Code(s): M62.82 - Rhabdomyolysis Status: Acute Assessment and Plan: Continue IV fluids monitor CK level (7) Acute kidney injury: Code(s): N17.9 - Acute kidney failure, unspecified Status: Acute Assessment and Plan: CT abdomen pelvis did not show any hydronephrosis continue IV fluids and vasopressors to maintain map monitor urine output electrolytes and creatinine (8) Pneumonia: Qualifiers: Pneumonia type: due to unspecified organism Laterality: right Lung location: middle lobe of lung Qualified Code(s): J18.9 - Pneumonia, unspecified organism Code(s): J18.9 - Pneumonia, unspecified organism Status: Acute Assessment and Plan: see above (9) Acidosis: Code(s): E87.2 - Acidosis Status: Acute Assessment and Plan: patient was started on IV bicarb infusion. his bicarb levels have improved hence I will change IV fluids to half-normal saline. I will repeat ABG later in the day assess patient's acid-base status (10) Elevated troponin: Code(s): R77.8 - Other specified abnormalities of plasma proteins Status: Acute Assessment and Plan: secondary to septic shock and respiratory failure EKG did not show any ST elevation patient is severely thrombocytopenic and in shock check echocardiogram Additional Plan DVT prophylaxis - SCDs Stress ulcer prophylaxis - PPI Nutrition - NPO for now Code Status - Full Code Total Critical Care Time - 40 minutes Due to a high probability of clinically significant, life threatening deterioration, the patient required my highest level of preparedness to intervene emergent
[2021-07-06] MEDS: MINERAL OIL/WHITE PETROLATUM OINTMENT 1 APPLIC EACH EYE ×2 (10:52→19:56)
[2021-07-06 11:43] LABS: Hematocrit 26.7 % (42.0-52.0); Hemoglobin 9.4 g/dL (14.0-18.0); Mean Corpuscular HGB Conc 35.2 g/dl (32-36); Mean Corpuscular Hemoglobin 37.5 pg (26-34); Mean Corpuscular Volume 106.4 fl (80-100); Mean Platelet Volume 10.2 fl (7.4-10.4); Platelet Count Result 47 k/mm3 (150-375); Red Blood Count 2.51 M/mm3 (4.6-6.20)
[2021-07-06 11:45] LABS: White Blood Count 0.2 K/mm3 (4.5-10.0)
[2021-07-06 11:56] LABS: Albumin Level 2.5 g/dL (3.5-5.1); Alkaline Phosphatase 102 U/L (38-126); Anion Gap 9 mmol/L (8-16); Aspartate Amino Transferase 114 U/L (17-59); Bilirubin,Total 1.1 mg/dL (0.2-1.3); Blood Urea Nitrogen 55 mg/dL (9-20); Calcium 6.5 mg/dL (8.4-10.2); Carbon Dioxide 32 mmol/L (22-30); Chloride 103 mmol/L (98-107); Estimated CRCL calculation 22 ml/min; Estimated Glomerular Filt Rate 28; Glucose 231 mg/dL (65-110); Magnesium 1.3 mg/dL (1.6-2.3); Potassium 3.5 mmol/L (3.4-5.0); Sodium 144 mmol/L (137-145)
[2021-07-06] MEDS: NOREPINEPHRINE 8 MG/D5W 250 ML 8 MG/250 ML BAG 45 MG IV CONT (12:12)
[2021-07-06 12:17] LABS: Alanine Aminotransferase 47 U/L (4-50)
[2021-07-06 12:22] LABS: Alveolar/Arterial O2 Gradient 234.1 mmHg; Base Excess ABG 1.7 mEq/l (+/-2.0); Fractional Inspired Oxygen 50 %; HCO3 ABG 26.8 mEq/l (22.0-26.0); Oxygen Content ABG 16.8 %vol (16.0-22.0); Oxygen Saturation ABG 94.6 % (95.0-100.0); Oxyhemoglobin 93.9 % THb (90.0-100.0); PCO2 ABG 44.2 mmHg (35.0-45.0); PO2 ABG 72.7 mmHg (80.0-100.0); PO2 FiO2 Ratio Arterial Blood 1.45 %; Total Hemoglobin 12.7 g/dL (12.0-18.0); pH ABG 7.401 (7.350-7.450)
[2021-07-06 12:23] LABS: Arterial Blood Gas Vent Mode CMV; Arterial Blood Gas Ventilator rate 30 /MIN; Device VENTILATOR; Modified Allen's Test Pass; Site Drawn RIGHT RADIAL
[2021-07-06 12:24] LABS: Arterial Blood Gas PEEP 5 cmH2O; Arterial Blood Gas Tidal Volume 380 ml
[2021-07-06] MEDS: MAGNESIUM SULF 2 GM/WATER 50ML 2 GM/50 ML BAG IVPB (12:37)
[2021-07-06] MEDS: POTASSIUM CHLORIDE 20 MEQ PACKET (FOR LIQUID) 40 MEQ FEED TUBE (12:37)
[2021-07-06] MEDS: HYDROCORTISONE SODIUM SUCCINATE 100 MG/2 ML VIAL IV PUSH ×2 (12:43→21:52)
--- NOTE | 2021-07-06 15:38 | PM.IMPN ---
Progress Note: A&P Assessment and Plan (1) Septic shock: Code(s): A41.9 - Sepsis, unspecified organism; R65.21 - Severe sepsis with septic shock Status: Acute Assessment and Plan: Septic shock secondary to Aspiration pneumonia and UTI (2) Hypothermia: Qualifiers: Encounter type: initial encounter Qualified Code(s): T68.XXXA - Hypothermia, initial encounter Code(s): T68.XXXA - Hypothermia, initial encounter Status: Acute Assessment and Plan: Hypothermic protocol (3) Rhabdomyolysis: Qualifiers: Encounter type: initial encounter Rhabdomyolysis type: traumatic Qualified Code(s): T79.6XXA - Traumatic ischemia of muscle, initial encounter Code(s): M62.82 - Rhabdomyolysis Status: Acute Assessment and Plan: ck is 2425 (4) Acute kidney injury: Code(s): N17.9 - Acute kidney failure, unspecified Status: Acute Assessment and Plan: Continue iv fluids and iv vasopressor Creat is 2.5 (5) Acidosis: Code(s): E87.2 - Acidosis Status: Acute Assessment and Plan: Patient was started on IV bicarb infusion. (6) Leucopenia: Qualifiers: Leukopenia type: unspecified Qualified Code(s): D72.819 - Decreased white blood cell count, unspecified Code(s): D72.819 - Decreased white blood cell count, unspecified Status: Acute (7) Thrombocytopenia: Code(s): D69.6 - Thrombocytopenia, unspecified Status: Acute (8) Acute hypercapnic respiratory failure: Code(s): J96.02 - Acute respiratory failure with hypercapnia Status: Acute Assessment and Plan: Continue full mechanical ventilation (9) Pneumonia: Qualifiers: Laterality: right Lung location: middle lobe of lung Pneumonia type: due to unspecified organism Qualified Code(s): J18.9 - Pneumonia, unspecified organism Code(s): J18.9 - Pneumonia, unspecified organism Status: Acute Assessment and Plan: Plan iv vasopressors, iv fluids and iv zosyn Subjective Date/time seen: 07/06/21 15:38 Interval history: 60-year-old male with past medical history of esophageal cancer status post esophagectomy with pull-through and vagotomy, prior parotid cancer, alcoholism and chronic borderline low blood pressures who presented to the ER via EMS after having fallen. Pt is intubated in icu. Review of Systems Review of Systems: ROS unobtainable: Yes unobtainable due to endotracheal tube Exam Narrative: Pt is intubated and sedated HEENT: ET tube in place. Objective Data Vital Signs Vital Signs: Vital Signs - 24 hr 07/05/21 18:40 07/05/21 19:10 07/05/21 21:30 Temperature 36.1 C L Pulse Rate 64 65 73 Respiratory Rate 21 H 20 19 Blood Pressure 80/55 L 98/73 L 118/67 Pulse Oximetry 99 92 95 07/06/21 00:28 07/06/21 00:35 07/06/21 00:36 Temperature Pulse Rate 48 L 50 L 52 L Respiratory Rate 21 H 20 19 Blood Pressure 57/38 L Pulse Oximetry 88 L 07/06/21 00:41 07/06/21 00:45 07/06/21 00:47 Temperature Pulse Rate 49 L 94 98 Respiratory Rate 16 16 11 L Blood Pressure 53/38 L 55/20 L Pulse Oximetry 07/06/21 00:57 07/06/21 01:01 07/06/21 01:04 Temperature Pulse Rate 72 71 71 Respiratory Rate 23 H 20 20 Blood Pressure 146/79 H 116/80 Pulse Oximetry 100 100 07/06/21 01:15 07/06/21 01:16 07/06/21 01:21 Temperature Pulse Rate 69 66 66 Respiratory Rate 20 20 19 Blood Pressure 83/55 L 79/52 L Pulse Oximetry 98 100 07/06/21 01:26 07/06/21 01:49 07/06/21 01:57 Temperature Pulse Rate 67 67 67 Respiratory Rate Blood Pressure 78/54 L 80/52 L Pulse Oximetry 100 100 07/06/21 02:00 07/06/21 02:29 07/06/21 02:35 Temperature 32.3 C L Pulse Rate 69 71 73 Respiratory Rate 27 H Blood Pressure 85/61 L Pulse Oximetry 100 100 07/06/21 02:37 07/06/21 02:39 07/06/21 02:45 Temperature 32.2 C L Pulse Rate 73
[2021-07-06] MEDS: EPINEPHrine INJ 1 MG in DEXTROSE 5% IN WATER 250 ML 15.06 MG IV CONT (17:06)
[2021-07-06] MEDS: NOREPINEPHRINE 8 MG/D5W 250 ML 8 MG/250 ML BAG 56.25 MG IV CONT ×2 (17:09→21:48)
[2021-07-06] MEDS: DOPamine 400 MG/D5W 250 ML 400 MG/250 ML BAG 38.78 MG IV CONT (17:15)
[2021-07-06 17:32] LABS: Hematocrit 26.2 % (42.0-52.0); Hemoglobin 9.1 g/dL (14.0-18.0); Immature Platelet Fraction Pct 5.3 % (0.9-11.2); Mean Corpuscular HGB Conc 34.7 g/dl (32-36); Mean Corpuscular Hemoglobin 37.1 pg (26-34); Mean Corpuscular Volume 106.9 fl (80-100); Mean Platelet Volume 10.9 fl (7.4-10.4); Platelet Count Result 39 k/mm3 (150-375); Red Blood Count 2.45 M/mm3 (4.6-6.20); Red Cell Distribution Width 15.1 % (11.5-14.5)
[2021-07-06 17:41] LABS: Anion Gap 10 mmol/L (8-16); Blood Urea Nitrogen 56 mg/dL (9-20); Calcium 5.8 mg/dL (8.4-10.2); Carbon Dioxide 31 mmol/L (22-30); Chloride 100 mmol/L (98-107); Estimated CRCL calculation 21 ml/min; Estimated Glomerular Filt Rate 26; Glucose 179 mg/dL (65-110); Potassium 4.9 mmol/L (3.4-5.0); Sodium 141 mmol/L (137-145)
--- NOTE | 2021-07-06 17:57 | PC.NURSE ---
Updated Family regaurding patients curret status and increasing use of pressors to mantain BP, Belinda Pollock and son Placido. Asked about wishes on code status if the pts heart were to stop. Family to discuss. Recieved call back from family and they decided pt to be a DNR; verified with Bi rodriguez, but to continue treatment at this time. Family would like to speak with tomorrow about future outlook and possible withdrawal of care.
[2021-07-06] MEDS: CALCIUM CHLOR 1,000MG/100ML NS 1,000 MG/100 ML BAG 100 MG IVPB (18:04)
[2021-07-06 18:17] LABS: Alveolar/Arterial O2 Gradient 303.9 mmHg; Device VENTILATOR; Fractional Inspired Oxygen 60 %; HCO3 ABG 23.5 mEq/l (22.0-26.0); Oxygen Content ABG 14.2 %vol (16.0-22.0); Oxygen Saturation ABG 92.7 % (95.0-100.0); Oxyhemoglobin 91.7 % THb (90.0-100.0); PO2 ABG 71.1 mmHg (80.0-100.0); PO2 FiO2 Ratio Arterial Blood 1.18 %; Site Drawn RIGHT BRACHIAL; pH ABG 7.307 (7.350-7.450)
[2021-07-06 18:18] LABS: Arterial Blood Gas PEEP 5 cmH2O; Arterial Blood Gas Tidal Volume 380 ml; Arterial Blood Gas Vent Mode CMV; Arterial Blood Gas Ventilator rate 30 /MIN
[2021-07-06] MEDS: DOPamine 400 MG/D5W 250 ML 400 MG/250 ML BAG 24.23 MG IV CONT (23:49)
[2021-07-07] VITALS: BP 105/82; PULSE 96; RESP 30; TEMP 37.7
[2021-07-07 00:30] VITALS: BP 102/79; PULSE 93; RESP 30; TEMP 37.7
[2021-07-07 00:51] VITALS: PULSE 0
[2021-07-07 00:52] VITALS: PULSE 0; RESP 0
--- NOTE | 2021-07-07 01:16 | PC.NURSE ---
Patient passed at 0049. Patient is a DNR. Dr. Hardin updated as well as Coretta (daughter of patient). Coretta will call later with home placement. Zunilda SEVERINO and myself at bedside.
--- NOTE | 2021-07-15 13:08 | P.DN_ITS ---
Discharge Summary Date and Time Date of : 07/07/21 Time of : 00:49 Provider Pronounced By: Melita Pereira RN Probable Cause of Probable Cause of : (1) Septic shock (2) Hypothermia (3) Rhabdomyolysis (4) Acute kidney injury (5) Acidosis (6) Leucopenia (7) Thrombocytopenia (8) Acute hypercapnic respiratory failure (9) Pneumonia Summary Hospital Course: 60-year-old male with past medical history of esophageal cancer status post esophagectomy with pull-through and vagotomy, prior parotid cancer, alcoholism and chronic borderline low blood pressures who presented to the ER via EMS after having fallen. Pt is intubated in icu. Septic shock secondary to Aspiration pneumonia and UTI. Hypothermic protocol. Continue iv fluids and iv vasopressor and iv bicarb infusion. And iv zosyn. Despite medical treatments, pt deteriorated and in the night. Additional Data Confirmation of as documented by pronouncing clinician: Pupillary Reflex, Palpable Pulses, Response to Stimuli, Heart Tones and Breath Sounds Name of Provider Notified: Dr. Rendon Time Provider Notified: 01:05 Provider Requests Autopsy: No Family Requests Autopsy: No Electronic Resources Librarian Notified: Yes Date [facility] Notified of : 07/07/21 Time [facility] Notified of : 01:24
== END 2021-07-07 00:49 | disposition expired | DRG 720 ==
LOC: ANHED 21:30 → ANHIMU 23:55 → ANHICU 07-06 00:30
PROVIDERS: Internal Medicine; Admitting Provider Internal Medicine; Emergency Provider Emergency Medicine; PCP Internal Medicine; Visit Provider Family Medicine
DX: A41.9 Sepsis, unspecified organism (principal); R65.21 Severe sepsis with septic shock; Z85.01 Personal history of malignant neoplasm of esophagus; J96.02 Acute respiratory failure with hypercapnia; I71.4 Abdominal aortic aneurysm, without rupture; F41.9 Anxiety disorder, unspecified; J45.909 Unspecified asthma, uncomplicated; K21.9 Gastro-esophageal reflux disease without esophagitis; E78.00 Pure hypercholesterolemia, unspecified; Z87.11 Personal history of peptic ulcer disease; N18.30 Chronic kidney disease, stage 3 unspecified; G62.2 Polyneuropathy due to other toxic agents; T45.1X5S Adverse effect of antineoplastic and immunosuppressive drugs, sequela; Z87.891 Personal history of nicotine dependence; I95.9 Hypotension, unspecified; N17.9 Acute kidney failure, unspecified; E87.2 Acidosis; D69.6 Thrombocytopenia, unspecified; Z91.81 History of falling; F10.20 Alcohol dependence, uncomplicated; T68.XXXA Hypothermia, initial encounter; T79.6XXA Traumatic ischemia of muscle, initial encounter; W19.XXXA Unspecified fall, initial encounter; Y93.9 Activity, unspecified; Y92.9 Unspecified place or not applicable; Y99.9 Unspecified external cause status; N39.0 Urinary tract infection, site not specified; J96.01 Acute respiratory failure with hypoxia; D61.818 Other pancytopenia; J69.0 Pneumonitis due to inhalation of food and vomit; X31.XXXA Exposure to excessive natural cold, initial encounter; E16.2 Hypoglycemia, unspecified; Y90.0 Blood alcohol level of less than 20 mg/100 ml
CPT/HCPCS: 31500; 36415; 36430; 36600; 70450; 71046; 71250; 72125; 74176; 78580; 80048; 80053; 80307; 81001; 82140; 82375; 82550; 82805; 82948; 83050; 83605; 83735; 84443; 84484; 85025; 85027; 85055; 85610; 85730; 86850; 86900; 86901; 87040; 87070; 87077; 87086; 87186; 87205; 93005; 94002; 94640; 96361; 96365; 96375; 99291; A9270; A9540; C1751; C9113; C9803; J0171; J0330; J0461; J1265; J1720; J2250; J2543; J2704; J3010; J3370; J3411; J3475; J7030; J7040; J7050; J7060; J7070; P9034; U0003; U0005